=== PATIENT | male | born 1945 | race Caucasian/White ===

== ENCOUNTER → 2016-10-03 | Outpatient (CLI) | payer OTHER ==
[~2016-10-03] MED LIST: ALPRAZOLAM0.25 M2 PO; AMBIEN5 MG PO; ATORVASTATIN CA10 MG PO; BACTRIM,SEPT1 TABLET PO; BAZA ANTIFUNGAL57 GM TP; BUMETANIDE1 MG PO; CARVEDILOL3.125 MG PO; CEFEPIME HCL2 GM IM; CHLORHEXIDINE473 ML MM; CIPRO250 MG PO; COREG3.125 M1 PO; CORTIZONE-10 PL57 GM TP; DULCOLAX10 MG PR; DUONEB 2.5-0.5 M3 ML AEROSOL; FERROUS SULFAT325 MG PO; FLOMAX0.4 MG PO; GENTLELAX119 GM PO; GLUCAGEN1 MG IM; HEPARIN SO5000 UNITS SC; HYDROCORTISON28.4 GM TP; LANTUS 3 M100 UNITS1 SC; LAXATIVE SUPPOS10 MG PR; LEVEMIR100 UNIT/2 SC; LEVOFLOXACIN750 MG PO; LEVOTHYROXINE25 MCG PO; LORAZEPAM0.5 MG PO; LYRICA75 MG PO; MAGNESIUM OXID400 MG PO; MAGNESIUM400 M1 PO; METHADONE10 MG PO; MILK OF MAGN PO; MIRALAX255 GM PO; MUCUS RELIEF400 MG PO; MYCOSTATIN15 GM PO; NOVOLOG 10100 UNITS/ SC; NOVOLOG PE100 UNITS/ SC; PROTONIX40 MG PO; PROVENTIL,2.5 MG/0.5 AEROSOL; PULMICORT0.5 MG/21 IH; ROXICODONE5 MG PO; SANTYL30 GM TP; SENOKOT S,PE1 TABLET PO; THERA1 EAC1 PO; XANAX0.25 MG PO
== END ==
LOC: RAD 11:00
DX: C34.92 Malignant neoplasm of unspecified part of left bronchus or lung (principal); N20.0 Calculus of kidney; N28.1 Cyst of kidney, acquired; I70.0 Atherosclerosis of aorta; I34.8 Other nonrheumatic mitral valve disorders
CPT/HCPCS: 71250; 74150

== ENCOUNTER → 2016-11-02 | Outpatient (CLI) | payer OTHER ==
[~2016-11-02] VITALS: Ht 160 cm; Wt 114.5 kg
[~2016-11-02] MED LIST changes: +ACETAMINOPHEN325 M3 PO; +ASCORBIC ACID500 M1 PO; +IRON325 MG PO; +LEVO-T50 MCG PO; +LIPITOR10 MG PO; +MYCOSTATIN1 APPLICAT TP; +NACL IV; +OXAYDO5 MG PO; +POVIDONE IODINE TP; +PULMICORT AEROSOL; +TAMSULOSIN HCL0.4 MG PO; +[UNRECOGNIZED DRUG - OTHER] IV
[2016-11-02 13:26] LABS: POINT-OF-CARE METER ID UU13113694
[2016-11-02 13:30] LABS: HEMATOCRIT 28.7 % (38.0-50.0); MCH 24.9 PG (29.0-34.0); MCHC 29.3 G/DL (30.0-36.0); MCV 85.2 FL (86-99); MEAN PLAT.VOLUME 9.8 uM^3 (9.0-12.4); PLATELET COUNT 145 K/uL (156-360); RBC DIS.WIDTH-CV 17.4 % (11.8-14.6); RBC DIS.WIDTH-SD 54.3 % (39-53); RED BLOOD COUNT 3.37 M/uL (4.00-5.50); WHITE BLOOD COUNT 4.1 K/uL (4.1-10.2)
[2016-11-02 13:52] LABS: INTER. NORMALIZED RATIO 1.2; PROTHROMBIN TIME 12.7 (9.2-11.2); PTT 28.9 (25-32)
== END | disposition home or self-care (01) ==
LOC: AMB 12:50
PROVIDERS: Internal Medicine Pulmonary Disease
PROC: 0B9B8ZX Drainage of Left Lower Lobe Bronchus, Via Natural or Artificial Opening Endoscopic, Diagnostic (ICD-10-PCS; principal; 2016-11-02)
DX: R91.8 Other nonspecific abnormal finding of lung field (principal)
CPT/HCPCS: 71010; 82948; 85027; 85610; 85730; 87070; 87077; 87116; 87205; 87206; 88108; 94002; J2250

== ENCOUNTER → 2016-11-22 | Outpatient (CLI) | payer OTHER | LOC: RAD 11-21 11:00 | DX: J98.09 Other diseases of bronchus, not elsewhere classified (principal) | CPT/HCPCS: 71250; 94799 ==

== ENCOUNTER 2016-12-01 17:24 | Inpatient (IN) | payer OTHER ==
[~2016-12-01] VITALS: Ht 182.9 cm; Wt 116.8 kg
[2016-12-01 18:20] LABS: BASE EXCESS 10.1 mEq/L (-3 to +3); CARBOXY HGB 1.7 % (0-5); PCO2 44 mm Hg (35-45)
[2016-12-01 18:22] LABS: BICARBONATE 34.3 mEq/L (22-26); COMMENTS - BLOOD GASES C+; DEVICE VENT; FI02 35 %; MECHANICAL RATE 26 resp/min; MODE AC; PEEP 5 CM/H20; PO2 69 mm Hg (80-100); SITE RR; TIDAL VOLUME 600 ML; TOTAL RESP RATE 26 resp/min
[2016-12-01 18:29] LABS: EOSINOPHIL COUNT 0.1 K/uL (0-0.3); HEMATOCRIT 28.6 % (38.0-50.0); IMMATURE GRANULOCYTE (%) 0.4 % (0.0-0.7); INSTRUMENT ABS NEUTROPHIL CT 3.8 K/uL; LYMPHOCYTE COUNT 0.3 K/uL (1.0-2.8); MCH 26.5 PG (29.0-34.0); MCHC 30.4 G/DL (30.0-36.0); MCV 87.2 FL (86-99); MEAN PLAT.VOLUME 10.8 uM^3 (9.0-12.4); MONOCYTE (%) 8.2 % (3-12); MONOCYTE COUNT 0.4 K/uL (0-0.8); NEUTROPHIL (%) 83.6 % (45-76); NEUTROPHIL COUNT 3.8 K/uL (1.8-6.4); PLATELET COUNT 119 K/uL (156-360); RBC DIS.WIDTH-CV 16.3 % (11.8-14.6); RBC DIS.WIDTH-SD 52.5 % (39-53); RED BLOOD COUNT 3.28 M/uL (4.00-5.50); WHITE BLOOD COUNT 4.5 K/uL (4.1-10.2)
[2016-12-01 18:38] LABS: CHLORIDE 103 mEq/L (99-109); POTASSIUM 4.8 mEq/L (3.7-5.4); SODIUM 140 mEq/L (136-147)
[2016-12-01 18:40] LABS: GLUCOSE 61 mg/dL (70-99)
[2016-12-01 18:41] LABS: ANION GAP 7 MEQ/L (2-14)
[2016-12-01 18:42] LABS: TOTAL BILIRUBIN 0.6 mg/dL (0.0-1.0)
[2016-12-01 18:43] LABS: ALKALINE PHOSPHATASE 95 IU/L (3-129)
[2016-12-01 18:44] LABS: GFR ESTIMATE (CALCULATED) > 59 mL/min/
[2016-12-01 18:45] LABS: UREA NITROGEN (BUN) 25 mg/dL (9-23)
[2016-12-01 19:50] LABS: POINT-OF-CARE METER ID UU13113702
[2016-12-01 20:47] LABS: ADD MIUA? YES; BILIRUBIN NEGATIVE; BLOOD MODERATE; COLOR YELLOW ((YELLOW)); GLUCOSE (STRIP) NEGATIVE; KETONES NEGATIVE; LEUKOCYTES TRACE; NITRITE NEGATIVE; PROTEIN (STRIP) 30; SPECIFIC GRAVITY 1.016 (1.000-1.030); UROBILINOGEN 0.2 MG/DL (0.2-1.0)
[2016-12-01 21:14] LABS: BACTERIA NONE SEEN /HPF; EPITHELIAL CELLS RARE /HPF; MUCUS NONE SEEN /LPF; RED BLOOD CELLS NONE SEEN /HPF (0-5); UCUL ADDED? NO
[2016-12-01] MEDS ORDERED: CALCIUM CARBON648 MG PO (22:35)
[2016-12-01] MEDS ORDERED: ZOSYN 3.373.375 GM/5 IV (22:37)
[2016-12-01] MEDS ORDERED: TROPICAMIDE15 M1 BOTH EYES (22:39)
[2016-12-01] MEDS ORDERED: POVIDONE IODINE TP (23:01)
[2016-12-02] VITALS (9 sets, daily range): BP systolic 79–110; BP diastolic 41–55
[2016-12-02 00:18] LABS: POINT-OF-CARE METER ID UU13113702
[2016-12-02 02:06] LABS: POINT-OF-CARE METER ID UU14174217
[2016-12-02 02:23] LABS: METH RESISTANT S AUREUS PCR POSITIVE (NEGATIVE)
[2016-12-02 02:31] LABS: PROBE CHECK PASS
[2016-12-02 06:00] LABS: POINT-OF-CARE METER ID UU14162636
[2016-12-02 06:15] LABS: HEMATOCRIT 27.1 % (38.0-50.0); MCH 26.5 PG (29.0-34.0); MCHC 30.6 G/DL (30.0-36.0); MCV 86.6 FL (86-99); MEAN PLAT.VOLUME 10.9 uM^3 (9.0-12.4); PLATELET COUNT 107 K/uL (156-360); RBC DIS.WIDTH-CV 16.5 % (11.8-14.6); RBC DIS.WIDTH-SD 52.4 % (39-53); RED BLOOD COUNT 3.13 M/uL (4.00-5.50); WHITE BLOOD COUNT 3.5 K/uL (4.1-10.2)
[2016-12-02 06:36] LABS: ANION GAP 6 MEQ/L (2-14); CHLORIDE 104 MEQ/L (99-109); GFR ESTIMATE (CALCULATED) > 59 mL/min/; GLUCOSE 77 mg/dL (70-99); POTASSIUM 4.5 MEQ/L (3.7-5.4); SAMPLE HEMOLYSIS CHECK 0; SAMPLE ICTERIC CHECK 0; SAMPLE LIPEMIA CHECK 0; SODIUM 139 MEQ/L (136-147); UREA NITROGEN (BUN) 21 mg/dL (9-23)
[2016-12-02 09:34] LABS: POINT-OF-CARE METER ID UU14162636
[2016-12-02 13:54] LABS: POINT-OF-CARE METER ID UU14162636
[2016-12-02 18:28] LABS: POINT-OF-CARE METER ID UU14174217
[2016-12-02 21:10] LABS: POINT-OF-CARE METER ID UU14174217
[2016-12-03] VITALS (9 sets, daily range): BP systolic 77–92; BP diastolic 41–53
[2016-12-03 01:45] LABS: POINT-OF-CARE METER ID UU14174217
[2016-12-03 05:51] LABS: POINT-OF-CARE METER ID UU14174217
[2016-12-03 09:45] LABS: POINT-OF-CARE METER ID UU14174217
[2016-12-03 10:26] LABS: HEMATOCRIT 27.9 % (38.0-50.0); MCH 26.2 PG (29.0-34.0); MCHC 30.1 G/DL (30.0-36.0); MCV 86.9 FL (86-99); MEAN PLAT.VOLUME 11.6 uM^3 (9.0-12.4); PLATELET COUNT 108 K/uL (156-360); RBC DIS.WIDTH-CV 17.2 % (11.8-14.6); RBC DIS.WIDTH-SD 54.9 % (39-53); RED BLOOD COUNT 3.21 M/uL (4.00-5.50); WHITE BLOOD COUNT 3.7 K/uL (4.1-10.2)
[2016-12-03 10:39] LABS: ANION GAP 7 MEQ/L (2-14); CHLORIDE 102 MEQ/L (99-109); GFR ESTIMATE (CALCULATED) 49 mL/min/; MAGNESIUM 1.9 mg/dl (1.3-2.7); POTASSIUM 4.6 MEQ/L (3.7-5.4); SAMPLE HEMOLYSIS CHECK 0; SAMPLE ICTERIC CHECK 0; SAMPLE LIPEMIA CHECK 0; SODIUM 137 MEQ/L (136-147); UREA NITROGEN (BUN) 23 mg/dL (9-23)
[2016-12-03 10:50] LABS: GLUCOSE 226 mg/dL (70-99)
[2016-12-03 16:24] LABS: POINT-OF-CARE METER ID UU14174217
[2016-12-03 17:35] LABS: POINT-OF-CARE METER ID UU13113702
[2016-12-03 22:40] LABS: POINT-OF-CARE METER ID UU14174217
[2016-12-04] VITALS: BP 88/50
[2016-12-04 04:00] VITALS: BP 106/61
[2016-12-04 05:56] LABS: HEMATOCRIT 26.5 % (38.0-50.0); MCH 26.4 PG (29.0-34.0); MCHC 30.6 G/DL (30.0-36.0); MCV 86.3 FL (86-99); MEAN PLAT.VOLUME 11.4 uM^3 (9.0-12.4); PLATELET COUNT 106 K/uL (156-360); RBC DIS.WIDTH-CV 17.3 % (11.8-14.6); RBC DIS.WIDTH-SD 54.6 % (39-53); RED BLOOD COUNT 3.07 M/uL (4.00-5.50)
[2016-12-04 06:49] LABS: ANION GAP 7 MEQ/L (2-14); CHLORIDE 105 MEQ/L (99-109); GFR ESTIMATE (CALCULATED) 49 mL/min/; GLUCOSE 195 mg/dL (70-99); POTASSIUM 4.6 MEQ/L (3.7-5.4); SAMPLE HEMOLYSIS CHECK 0; SAMPLE ICTERIC CHECK 0; SAMPLE LIPEMIA CHECK 0; SODIUM 137 MEQ/L (136-147); UREA NITROGEN (BUN) 24 mg/dL (9-23)
[2016-12-04 08:00] VITALS: BP 99/50
[2016-12-04] MEDS ORDERED: ZOSYN 3.373.375 GM/5 IV (10:56)
[2016-12-04] MEDS ORDERED: ACIDOPHILUS LA1 EACH PO (10:59)
[2016-12-04 12:00] VITALS: BP 91/46
[2016-12-04 12:08] LABS: POINT-OF-CARE METER ID UU14174217
== END 2016-12-04 14:30 | disposition short-term general hospital (02) | DRG 194 ==
LOC: EME → EDBD 17:24 → EME 17:24 → 4WEST 23:21 → EDOF 23:21 → 4WEST 12-02 00:45
PROVIDERS: Emergency Medicine; Hospitalist; Internal Medicine
DX: J18.9 Pneumonia, unspecified organism (principal); Z99.11 Dependence on respirator [ventilator] status; J96.11 Chronic respiratory failure with hypoxia; Z93.0 Tracheostomy status; D69.6 Thrombocytopenia, unspecified; E11.22 Type 2 diabetes mellitus with diabetic chronic kidney disease; E11.649 Type 2 diabetes mellitus with hypoglycemia without coma; N18.3 Chronic kidney disease, stage 3 (moderate); I95.9 Hypotension, unspecified; J44.9 Chronic obstructive pulmonary disease, unspecified; B19.20 Unspecified viral hepatitis C without hepatic coma; E66.9 Obesity, unspecified; G89.4 Chronic pain syndrome; K74.60 Unspecified cirrhosis of liver; E03.9 Hypothyroidism, unspecified; G47.33 Obstructive sleep apnea (adult) (pediatric); E78.5 Hyperlipidemia, unspecified; F41.9 Anxiety disorder, unspecified; I89.0 Lymphedema, not elsewhere classified; I87.2 Venous insufficiency (chronic) (peripheral); Y95 Nosocomial condition; Z68.33 Body mass index [BMI] 33.0-33.9, adult; Z95.2 Presence of prosthetic heart valve; Z87.01 Personal history of pneumonia (recurrent)
CPT/HCPCS: 36600; 71010; 74177; 80048; 80053; 80202; 81003; 82803; 82948; 83605; 83735; 85025; 85027; 87040; 87070; 87077; 87081; 87086; 87186; 87205; 87641; 93005; 94002; 94003; 94640; 94640 76; 99202; 99281; 99285; J0456; J0692; J1650; J1815; J1956; J2405; J2543; J3370; J7030; J7042; J7050; J7060

== ENCOUNTER → 2016-12-26 | Outpatient (CLI) | payer OTHER ==
[~2016-12-26] MED LIST changes: +ACIDOPHILUS LA1 EACH PO; +CALCIUM CARBON648 MG PO; +TROPICAMIDE15 M1 BOTH EYES; +ZOSYN 3.373.375 GM/5 IV
== END ==
LOC: AMB 11:53
DX: K62.5 Hemorrhage of anus and rectum (principal); D50.9 Iron deficiency anemia, unspecified; J96.10 Chronic respiratory failure, unspecified whether with hypoxia or hypercapnia; Z93.0 Tracheostomy status; Z99.11 Dependence on respirator [ventilator] status; B19.20 Unspecified viral hepatitis C without hepatic coma; E03.9 Hypothyroidism, unspecified; F41.9 Anxiety disorder, unspecified; G89.29 Other chronic pain; E11.42 Type 2 diabetes mellitus with diabetic polyneuropathy; K21.9 Gastro-esophageal reflux disease without esophagitis; Z87.898 Personal history of other specified conditions; Z87.891 Personal history of nicotine dependence
CPT/HCPCS: 94002; 99212

== ENCOUNTER 2017-01-24 22:22 | Emergency (ER) | payer OTHER ==
[~2017-01-24] VITALS: Ht 172.7 cm; Wt 87.7 kg
[~2017-01-24 22:22] MED LIST changes: +NYATA15 GM TP; +ZINC SULFATE220 MG PO; +[UNRECOGNIZED DRUG - OTHER]
[2017-01-24 23:18] LABS: HEMATOCRIT 26.5 % (38.0-50.0); MCH 27.2 PG (29.0-34.0); MCHC 31.7 G/DL (30.0-36.0); MCV 85.8 FL (86-99); MEAN PLAT.VOLUME 9.7 uM^3 (9.0-12.4); PLATELET COUNT 116 K/uL (156-360); RBC DIS.WIDTH-CV 15.4 % (11.8-14.6); RED BLOOD COUNT 3.09 M/uL (4.00-5.50); WHITE BLOOD COUNT 5.7 K/uL (4.1-10.2)
[2017-01-24 23:30] LABS: CHLORIDE 99 mEq/L (99-109); POTASSIUM 5.1 mEq/L (3.7-5.4); SODIUM 135 mEq/L (136-147)
[2017-01-24 23:32] LABS: GLUCOSE 146 mg/dL (70-99)
[2017-01-24 23:33] LABS: ANION GAP 11 MEQ/L (2-14)
[2017-01-24 23:34] LABS: TOTAL BILIRUBIN 0.4 mg/dL (0.0-1.0)
[2017-01-24 23:35] LABS: ALKALINE PHOSPHATASE 83 IU/L (3-129)
[2017-01-24 23:36] LABS: GFR ESTIMATE (CALCULATED) 40 mL/min/
[2017-01-24 23:37] LABS: UREA NITROGEN (BUN) 47 mg/dL (9-23)
[2017-01-24 23:39] LABS: LIPASE 16 U/L (1.0-51.0); TROP-I INTERPRETATION NEGATIVE; TROPONIN-I 0.03 ng/mL (0.0-0.30)
[2017-01-25 02:54] LABS: CHLORIDE 101 mEq/L (99-109); POTASSIUM 5.3 mEq/L (3.7-5.4); SODIUM 136 mEq/L (136-147)
[2017-01-25 02:55] LABS: GLUCOSE 110 mg/dL (70-99)
[2017-01-25 02:57] LABS: ANION GAP 8 MEQ/L (2-14)
[2017-01-25 02:59] LABS: GFR ESTIMATE (CALCULATED) 40 mL/min/
[2017-01-25 03:00] LABS: UREA NITROGEN (BUN) 46 mg/dL (9-23)
[2017-01-25 05:11] VITALS: BP 81/50
[2017-01-26] MEDS ORDERED: DUONEB 2.5-0.5 M3 ML IPPB (17:52)
[2017-01-26] MEDS ORDERED: PULMICORT0.5 MG/21 IH (17:53)
[2017-01-26] MEDS ORDERED: NYATA15 GM TP (17:53)
[2017-01-26] MEDS ORDERED: LEVO-T50 MCG PO (17:54)
[2017-01-26] MEDS ORDERED: ACIDOPHILUS1 EAC3 PO (17:55)
[2017-01-26] MEDS ORDERED: TROPICAMIDE15 M1 BOTH EYES (17:55)
[2017-01-26] MEDS ORDERED: PANTOPRAZOLE SO40 MG PO (17:56)
[2017-01-26] MEDS ORDERED: MAGNESIUM400 M1 PO (17:56)
[2017-01-26] MEDS ORDERED: POLYETHYLENE GL17 GM PO (17:57)
[2017-01-26] MEDS ORDERED: THERA1 EAC1 PO (17:58)
[2017-01-26] MEDS ORDERED: LYRICA75 MG PO (17:58)
[2017-01-26] MEDS ORDERED: CORTIZONE-10 PL57 GM TP (17:59)
[2017-01-26] MEDS ORDERED: GLUCAGEN1 MG IM (17:59)
[2017-01-26] MEDS ORDERED: MILK OF MAGN PO (18:00)
[2017-01-26] MEDS ORDERED: SENEXON-S TABL1 EACH PO (18:01)
[2017-01-26] MEDS ORDERED: OXAYDO5 MG PO (18:03)
[2017-01-26] MEDS ORDERED: TAMSULOSIN HCL0.4 MG PO (18:05)
[2017-01-26] MEDS ORDERED: ACETAMINOPHEN325 M1 PO (18:06)
[2017-01-26] MEDS ORDERED: AMOXICILLIN500 MG PO (18:08)
[2017-01-26] MEDS ORDERED: CEPACOL SORE T1 EAC9 MM (18:10)
[2017-01-26] MEDS ORDERED: CALCIUM CARBON648 MG PO (18:11)
[2017-01-26] MEDS ORDERED: METHADONE5 MG PO (18:11)
[2017-01-26] MEDS ORDERED: METHADONE10 MG PO (18:12)
[2017-01-26] MEDS ORDERED: FERROUS SULFAT325 MG PO (18:13)
[2017-01-26] MEDS ORDERED: LEVEMIR100 UNIT/2 SC (18:13)
[2017-01-26] MEDS ORDERED: NOVOLOG 10100 UNITS/ SC ×2 (18:14→18:18)
[2017-01-26] MEDS ORDERED: ASCORBIC ACID500 M3 PO (18:19)
[2017-01-26] MEDS ORDERED: ZINC SULFATE220 M1 PO (18:20)
[2017-01-26] MEDS ORDERED: ATORVASTATIN CA10 MG PO (18:20)
== END 2017-01-25 05:22 ==
LOC: EME → EDBD 22:22 → EME 01-25 05:22
PROVIDERS: Emergency Medicine
DX: R13.10 Dysphagia, unspecified (principal); I13.0 Hypertensive heart and chronic kidney disease with heart failure and stage 1 through stage 4 chronic kidney disease, or unspecified chronic kidney disease; E11.22 Type 2 diabetes mellitus with diabetic chronic kidney disease; N18.9 Chronic kidney disease, unspecified; I50.9 Heart failure, unspecified; D64.9 Anemia, unspecified; I95.89 Other hypotension; Z87.19 Personal history of other diseases of the digestive system; Z99.11 Dependence on respirator [ventilator] status; Z93.0 Tracheostomy status; Z87.891 Personal history of nicotine dependence
CPT/HCPCS: 71010; 80048; 80053; 81003; 83605; 83690; 83880; 84484; 85027; 87040; 93005; 94002; 94003; 99281; 99285; C9113; J7030

== ENCOUNTER 2017-01-25 16:06 | Inpatient (IN) | payer OTHER ==
[~2017-01-25] VITALS: Ht 165.1 cm; Wt 98.1 kg
[2017-01-25 17:57] LABS: EOSINOPHIL (%) 1.8 % (0-5); EOSINOPHIL COUNT 0.1 K/uL (0-0.3); HEMATOCRIT 26.5 % (38.0-50.0); IMMATURE GRANULOCYTE (%) 0.4 % (0.0-0.7); INSTRUMENT ABS NEUTROPHIL CT 4.4 K/uL; LYMPHOCYTE COUNT 0.5 K/uL (1.0-2.8); MCH 27.6 PG (29.0-34.0); MCHC 31.3 G/DL (30.0-36.0); MEAN PLAT.VOLUME 10.8 uM^3 (9.0-12.4); MONOCYTE (%) 7.5 % (3-12); MONOCYTE COUNT 0.4 K/uL (0-0.8); NEUTROPHIL (%) 80.7 % (45-76); NEUTROPHIL COUNT 4.4 K/uL (1.8-6.4); PLATELET COUNT 118 K/uL (156-360); RBC DIS.WIDTH-CV 15.6 % (11.8-14.6); RBC DIS.WIDTH-SD 50.2 % (39-53); RED BLOOD COUNT 3.01 M/uL (4.00-5.50); WHITE BLOOD COUNT 5.5 K/uL (4.1-10.2)
[2017-01-25 18:13] LABS: CHLORIDE 101 mEq/L (99-109); POTASSIUM 5.5 mEq/L (3.7-5.4); SODIUM 136 mEq/L (136-147)
[2017-01-25 18:15] LABS: GLUCOSE 118 mg/dL (70-99)
[2017-01-25 18:16] LABS: ANION GAP 9 MEQ/L (2-14)
[2017-01-25 18:19] LABS: GFR ESTIMATE (CALCULATED) 35 mL/min/
[2017-01-25 18:20] LABS: UREA NITROGEN (BUN) 49 mg/dL (9-23)
[2017-01-25 18:49] LABS: TOTAL BILIRUBIN 0.4 mg/dL (0.0-1.0)
[2017-01-25 18:50] LABS: ALKALINE PHOSPHATASE 78 IU/L (3-129)
[2017-01-25 18:52] LABS: DIRECT BILIRUBIN 0.3 mg/dL (0.0-0.3)
[2017-01-25 18:59] LABS: TROP-I INTERPRETATION NEGATIVE; TROPONIN-I 0.04 ng/mL (0.0-0.30)
[2017-01-25 20:36] LABS: ADD MIUA? YES; BILIRUBIN NEGATIVE; BLOOD LARGE; COLOR YELLOW ((YELLOW)); GLUCOSE (STRIP) NEGATIVE; KETONES 5; LEUKOCYTES LARGE; NITRITE NEGATIVE; PROTEIN (STRIP) 30; SPECIFIC GRAVITY 1.012 (1.000-1.030); UROBILINOGEN 0.2 MG/DL (0.2-1.0)
[2017-01-25 21:18] LABS: AMORPHOUS URATES CRYSTALS 2+; BACTERIA RARE /HPF; CASTS NONE SEEN /LPF; CRYSTALS PRESENT; EPITHELIAL CELLS NONE SEEN /HPF; MUCUS NONE SEEN /LPF; UCUL ADDED? NO; WHITE BLOOD CELLS 40-50 /HPF (0-5)
[2017-01-25 22:08] VITALS: BP 92/42
[2017-01-25 22:14] VITALS: BP 87/49
[2017-01-25 23:00] VITALS: BP 91/41
[2017-01-25 23:52] LABS: METH RESISTANT S AUREUS PCR NEGATIVE (NEGATIVE)
[2017-01-25 23:56] LABS: PROBE CHECK PASS; SPECIMEN PROCESSING CONTROL PASS
[2017-01-26] VITALS (26 sets, daily range): BP systolic 70–120; BP diastolic 33–60
[2017-01-26 06:39] LABS: POINT-OF-CARE METER ID UU14162636
[2017-01-26 06:52] LABS: CHLORIDE 108 mEq/L (99-109); POTASSIUM 5.2 mEq/L (3.7-5.4); SODIUM 139 mEq/L (136-147)
[2017-01-26 06:54] LABS: GLUCOSE 163 mg/dL (70-99)
[2017-01-26 06:56] LABS: ANION GAP 10 MEQ/L (2-14)
[2017-01-26 06:58] LABS: GFR ESTIMATE (CALCULATED) 43 mL/min/
[2017-01-26 06:59] LABS: UREA NITROGEN (BUN) 40 mg/dL (9-23)
[2017-01-26 09:09] LABS: EOSINOPHIL (%) 1.5 % (0-5); EOSINOPHIL COUNT 0.1 K/uL (0-0.3); HEMATOCRIT 24.4 % (38.0-50.0); IMMATURE GRANULOCYTE (%) 0.4 % (0.0-0.7); INSTRUMENT ABS NEUTROPHIL CT 3.6 K/uL; LYMPHOCYTE COUNT 0.5 K/uL (1.0-2.8); MCH 27.6 PG (29.0-34.0); MCHC 32.4 G/DL (30.0-36.0); MCV 85.3 FL (86-99); MEAN PLAT.VOLUME 10.7 uM^3 (9.0-12.4); MONOCYTE (%) 8.5 % (3-12); MONOCYTE COUNT 0.4 K/uL (0-0.8); NEUTROPHIL (%) 78.3 % (45-76); NEUTROPHIL COUNT 3.6 K/uL (1.8-6.4); PLATELET COUNT 115 K/uL (156-360); RBC DIS.WIDTH-CV 15.6 % (11.8-14.6); RBC DIS.WIDTH-SD 49.2 % (39-53); RED BLOOD COUNT 2.86 M/uL (4.00-5.50); WHITE BLOOD COUNT 4.6 K/uL (4.1-10.2)
[2017-01-26 12:48] LABS: POINT-OF-CARE METER ID UU14162636
[2017-01-26] MEDS ORDERED: DUONEB 2.5-0.5 M3 ML IPPB (17:52)
[2017-01-26] MEDS ORDERED: PULMICORT0.5 MG/21 IH (17:53)
[2017-01-26] MEDS ORDERED: NYATA15 GM TP (17:53)
[2017-01-26] MEDS ORDERED: LEVO-T50 MCG PO (17:54)
[2017-01-26 17:55] LABS: POINT-OF-CARE METER ID UU14162636
[2017-01-26] MEDS ORDERED: TROPICAMIDE15 M1 BOTH EYES (17:55)
[2017-01-26] MEDS ORDERED: ACIDOPHILUS1 EAC3 PO (17:55)
[2017-01-26] MEDS ORDERED: PANTOPRAZOLE SO40 MG PO (17:56)
[2017-01-26] MEDS ORDERED: MAGNESIUM400 M1 PO (17:56)
[2017-01-26] MEDS ORDERED: POLYETHYLENE GL17 GM PO (17:57)
[2017-01-26] MEDS ORDERED: THERA1 EAC1 PO (17:58)
[2017-01-26] MEDS ORDERED: LYRICA75 MG PO (17:58)
[2017-01-26] MEDS ORDERED: GLUCAGEN1 MG IM (17:59)
[2017-01-26] MEDS ORDERED: CORTIZONE-10 PL57 GM TP (17:59)
[2017-01-26] MEDS ORDERED: MILK OF MAGN PO (18:00)
[2017-01-26] MEDS ORDERED: SENEXON-S TABL1 EACH PO (18:01)
[2017-01-26] MEDS ORDERED: OXAYDO5 MG PO (18:03)
[2017-01-26] MEDS ORDERED: TAMSULOSIN HCL0.4 MG PO (18:05)
[2017-01-26] MEDS ORDERED: ACETAMINOPHEN325 M1 PO (18:06)
[2017-01-26] MEDS ORDERED: AMOXICILLIN500 MG PO (18:08)
[2017-01-26] MEDS ORDERED: CEPACOL SORE T1 EAC9 MM (18:10)
[2017-01-26] MEDS ORDERED: CALCIUM CARBON648 MG PO (18:11)
[2017-01-26] MEDS ORDERED: METHADONE5 MG PO (18:11)
[2017-01-26] MEDS ORDERED: METHADONE10 MG PO (18:12)
[2017-01-26] MEDS ORDERED: FERROUS SULFAT325 MG PO (18:13)
[2017-01-26] MEDS ORDERED: LEVEMIR100 UNIT/2 SC (18:13)
[2017-01-26] MEDS ORDERED: NOVOLOG 10100 UNITS/ SC ×2 (18:14→18:18)
[2017-01-26] MEDS ORDERED: ASCORBIC ACID500 M3 PO (18:19)
[2017-01-26] MEDS ORDERED: ATORVASTATIN CA10 MG PO (18:20)
[2017-01-26] MEDS ORDERED: ZINC SULFATE220 M1 PO (18:20)
[2017-01-26 21:52] LABS: POINT-OF-CARE METER ID UU14162636
[2017-01-27] VITALS (24 sets, daily range): BP systolic 68–140; BP diastolic 35–64
[2017-01-27 08:26] LABS: EOSINOPHIL (%) 2.8 % (0-5); EOSINOPHIL COUNT 0.1 K/uL (0-0.3); HEMATOCRIT 24.9 % (38.0-50.0); IMMATURE GRANULOCYTE (%) 0.3 % (0.0-0.7); INSTRUMENT ABS NEUTROPHIL CT 2.8 K/uL; LYMPHOCYTE COUNT 0.6 K/uL (1.0-2.8); MCH 28.2 PG (29.0-34.0); MCHC 32.9 G/DL (30.0-36.0); MCV 85.6 FL (86-99); MEAN PLAT.VOLUME 10.6 uM^3 (9.0-12.4); MONOCYTE (%) 9.3 % (3-12); MONOCYTE COUNT 0.4 K/uL (0-0.8); NEUTROPHIL (%) 73.1 % (45-76); NEUTROPHIL COUNT 2.8 K/uL (1.8-6.4); PLATELET COUNT 114 K/uL (156-360); RBC DIS.WIDTH-CV 15.9 % (11.8-14.6); RBC DIS.WIDTH-SD 50.1 % (39-53); RED BLOOD COUNT 2.91 M/uL (4.00-5.50); WHITE BLOOD COUNT 3.9 K/uL (4.1-10.2)
[2017-01-27 08:52] LABS: ANION GAP 7 MEQ/L (2-14); CHLORIDE 104 MEQ/L (99-109); GFR ESTIMATE (CALCULATED) 49 mL/min/; GLUCOSE 150 mg/dL (70-99); SAMPLE HEMOLYSIS CHECK 0; SAMPLE ICTERIC CHECK 0; SAMPLE LIPEMIA CHECK 0; SODIUM 135 MEQ/L (136-147); UREA NITROGEN (BUN) 31 mg/dL (9-23)
[2017-01-27 08:55] LABS: POTASSIUM 4.1 MEQ/L (3.7-5.4)
[2017-01-27 12:36] LABS: POINT-OF-CARE METER ID UU14162636
[2017-01-27 17:44] LABS: POINT-OF-CARE METER ID UU14162636
[2017-01-28] VITALS (13 sets, daily range): BP systolic 69–142; BP diastolic 47–69
[2017-01-28 06:08] LABS: EOSINOPHIL (%) 5.8 % (0-5); EOSINOPHIL COUNT 0.2 K/uL (0-0.3); HEMATOCRIT 24.3 % (38.0-50.0); IMMATURE GRANULOCYTE (%) 0.3 % (0.0-0.7); INSTRUMENT ABS NEUTROPHIL CT 2.4 K/uL; LYMPHOCYTE COUNT 0.5 K/uL (1.0-2.8); MCH 27.9 PG (29.0-34.0); MCHC 32.5 G/DL (30.0-36.0); MCV 85.9 FL (86-99); MEAN PLAT.VOLUME 11.2 uM^3 (9.0-12.4); MONOCYTE COUNT 0.3 K/uL (0-0.8); NEUTROPHIL (%) 70.7 % (45-76); NEUTROPHIL COUNT 2.4 K/uL (1.8-6.4); PLATELET COUNT 121 K/uL (156-360); RBC DIS.WIDTH-CV 15.5 % (11.8-14.6); RBC DIS.WIDTH-SD 49.2 % (39-53); RED BLOOD COUNT 2.83 M/uL (4.00-5.50); WHITE BLOOD COUNT 3.5 K/uL (4.1-10.2)
[2017-01-28 06:19] LABS: INTER. NORMALIZED RATIO 2.3; PROTHROMBIN TIME 24.4 (9.2-11.2)
[2017-01-28 06:45] LABS: ANION GAP 5 MEQ/L (2-14); CHLORIDE 107 MEQ/L (99-109); GFR ESTIMATE (CALCULATED) 49 mL/min/; POTASSIUM 4.2 MEQ/L (3.7-5.4); SAMPLE HEMOLYSIS CHECK 0; SAMPLE ICTERIC CHECK 0; SAMPLE LIPEMIA CHECK 0; SODIUM 136 MEQ/L (136-147); UREA NITROGEN (BUN) 25 mg/dL (9-23)
[2017-01-28 06:46] LABS: GLUCOSE 112 mg/dL (70-99)
[2017-01-28 17:16] LABS: POINT-OF-CARE METER ID UU14174217
[2017-01-28 19:07] LABS: MCH 28.1 PG (29.0-34.0); MCHC 32.7 G/DL (30.0-36.0); MCV 86.1 FL (86-99); MEAN PLAT.VOLUME 11.7 uM^3 (9.0-12.4); PLATELET COUNT 139 K/uL (156-360); RBC DIS.WIDTH-CV 15.6 % (11.8-14.6); RBC DIS.WIDTH-SD 48.5 % (39-53); RED BLOOD COUNT 3.02 M/uL (4.00-5.50); WHITE BLOOD COUNT 3.6 K/uL (4.1-10.2)
[2017-01-29 05:14] LABS: POINT-OF-CARE METER ID UU14162636
[2017-01-29 07:55] LABS: ANION GAP 9 MEQ/L (2-14); CHLORIDE 107 MEQ/L (99-109); GFR ESTIMATE (CALCULATED) 37 mL/min/; GLUCOSE 158 mg/dL (70-99); POTASSIUM 4.2 MEQ/L (3.7-5.4); SAMPLE HEMOLYSIS CHECK 0; SAMPLE ICTERIC CHECK 0; SAMPLE LIPEMIA CHECK 0; SODIUM 136 MEQ/L (136-147); UREA NITROGEN (BUN) 26 mg/dL (9-23)
[2017-01-29 08:18] LABS: EOSINOPHIL (%) 3.9 % (0-5); EOSINOPHIL COUNT 0.1 K/uL (0-0.3); HEMATOCRIT 24.5 % (38.0-50.0); IMMATURE GRANULOCYTE (%) 0.4 % (0.0-0.7); INSTRUMENT ABS NEUTROPHIL CT 2.1 K/uL; LYMPHOCYTE COUNT 0.3 K/uL (1.0-2.8); MCHC 31.8 G/DL (30.0-36.0); MCV 87.8 FL (86-99); MONOCYTE (%) 7.5 % (3-12); MONOCYTE COUNT 0.2 K/uL (0-0.8); NEUTROPHIL COUNT 2.1 K/uL (1.8-6.4); RBC DIS.WIDTH-CV 15.5 % (11.8-14.6); RBC DIS.WIDTH-SD 49.6 % (39-53); RED BLOOD COUNT 2.79 M/uL (4.00-5.50); WHITE BLOOD COUNT 2.8 K/uL (4.1-10.2)
[2017-01-29 09:28] LABS: MEAN PLAT.VOLUME 11.3 uM^3 (9.0-12.4); PLAT.SUFFICIENCY DECREASED
[2017-01-29 09:31] LABS: PLATELET COUNT 96 K/uL (156-360)
[2017-01-29 12:24] LABS: POINT-OF-CARE METER ID UU14162636
[2017-01-29 17:48] LABS: POINT-OF-CARE METER ID UU14162636
[2017-01-29 19:30] VITALS: BP 83/47
[2017-01-29 22:00] VITALS: BP 91/53
[2017-01-29 22:36] LABS: POINT-OF-CARE METER ID UU14162636
[2017-01-30] VITALS (22 sets, daily range): BP systolic 71–92; BP diastolic 41–58
[2017-01-30 07:12] LABS: EOSINOPHIL COUNT 0.1 K/uL (0-0.3); HEMATOCRIT 26.1 % (38.0-50.0); IMMATURE GRANULOCYTE (%) 0.3 % (0.0-0.7); INSTRUMENT ABS NEUTROPHIL CT 2.5 K/uL; LYMPHOCYTE COUNT 0.4 K/uL (1.0-2.8); MCHC 31.4 G/DL (30.0-36.0); MCV 89.1 FL (86-99); MEAN PLAT.VOLUME 11.5 uM^3 (9.0-12.4); MONOCYTE (%) 7.7 % (3-12); MONOCYTE COUNT 0.3 K/uL (0-0.8); NEUTROPHIL (%) 76.9 % (45-76); NEUTROPHIL COUNT 2.5 K/uL (1.8-6.4); PLATELET COUNT 90 K/uL (156-360); RBC DIS.WIDTH-CV 15.5 % (11.8-14.6); RBC DIS.WIDTH-SD 50.7 % (39-53); RED BLOOD COUNT 2.93 M/uL (4.00-5.50); WHITE BLOOD COUNT 3.3 K/uL (4.1-10.2)
[2017-01-30 07:33] LABS: ANION GAP 9 MEQ/L (2-14); CHLORIDE 106 MEQ/L (99-109); GFR ESTIMATE (CALCULATED) 33 mL/min/; GLUCOSE 145 mg/dL (70-99); POTASSIUM 4.2 MEQ/L (3.7-5.4); SAMPLE HEMOLYSIS CHECK 0; SAMPLE ICTERIC CHECK 0; SAMPLE LIPEMIA CHECK 0; SODIUM 136 MEQ/L (136-147); UREA NITROGEN (BUN) 27 mg/dL (9-23)
[2017-01-30 10:03] LABS: INTER. NORMALIZED RATIO 1.2
[2017-01-30 11:46] LABS: BASE EXCESS -2.1 mEq/L (-3 to +3); CARBOXY HGB 2.2 % (0-5); METHEMOGLOBIN 1.7 % (0-1.5); PO2 58 mm Hg (80-100); pH 7.41 (7.35-7.45)
[2017-01-30 11:47] LABS: BICARBONATE 22.2 mEq/L (22-26); COMMENTS - BLOOD GASES A+C+; DEVICE 980 PB; FI02 21 %; MECHANICAL RATE 26 resp/min; MODE AC; PCO2 35 mm Hg (35-45); PEEP 5 CM/H20; SITE RR; TIDAL VOLUME 600 ML; TOTAL RESP RATE 26 resp/min
[2017-01-30 12:15] LABS: POINT-OF-CARE METER ID UU13113731
[2017-01-30 12:33] LABS: PROTHROMBIN TIME 12.4 (9.2-11.2)
[2017-01-30 18:12] LABS: POINT-OF-CARE METER ID UU13113731
[2017-01-30 21:44] LABS: POINT-OF-CARE METER ID UU13113731
[2017-01-31] VITALS (12 sets, daily range): BP systolic 73–98; BP diastolic 40–61
[2017-01-31 08:00] LABS: POINT-OF-CARE METER ID UU13113803
[2017-01-31 08:44] LABS: HEMATOCRIT 30.2 % (38.0-50.0); MCH 28.1 PG (29.0-34.0); MCHC 31.5 G/DL (30.0-36.0); MCV 89.3 FL (86-99); MEAN PLAT.VOLUME 11.7 uM^3 (9.0-12.4); PLATELET COUNT 91 K/uL (156-360); RBC DIS.WIDTH-CV 15.5 % (11.8-14.6); RED BLOOD COUNT 3.38 M/uL (4.00-5.50); WHITE BLOOD COUNT 3.9 K/uL (4.1-10.2)
[2017-01-31 09:00] LABS: CHLORIDE 108 mEq/L (99-109); POTASSIUM 3.9 mEq/L (3.7-5.4); SODIUM 138 mEq/L (136-147)
[2017-01-31 09:02] LABS: GLUCOSE 149 mg/dL (70-99)
[2017-01-31 09:03] LABS: ANION GAP 12 MEQ/L (2-14)
[2017-01-31 09:06] LABS: GFR ESTIMATE (CALCULATED) 32 mL/min/; UREA NITROGEN (BUN) 31 mg/dL (9-23)
[2017-01-31 09:49] LABS: EOSINOPHIL (%) 3.1 % (0-5); EOSINOPHIL COUNT 0.1 K/uL (0-0.3); IMMATURE GRANULOCYTE (%) 0.3 % (0.0-0.7); INSTRUMENT ABS NEUTROPHIL CT 3.2 K/uL; LYMPHOCYTE COUNT 0.3 K/uL (1.0-2.8); MONOCYTE (%) 5.4 % (3-12); MONOCYTE COUNT 0.2 K/uL (0-0.8); NEUTROPHIL COUNT 3.2 K/uL (1.8-6.4)
[2017-01-31 12:32] LABS: POINT-OF-CARE METER ID UU13113803
[2017-01-31 16:38] LABS: POINT-OF-CARE METER ID UU13113803
[2017-01-31 22:14] LABS: POINT-OF-CARE METER ID UU13113803
[2017-02-01] VITALS (8 sets, daily range): BP systolic 76–88; BP diastolic 45–52
[2017-02-01 05:39] LABS: EOSINOPHIL (%) 2.6 % (0-5); EOSINOPHIL COUNT 0.1 K/uL (0-0.3); HEMATOCRIT 25.7 % (38.0-50.0); INSTRUMENT ABS NEUTROPHIL CT 2.4 K/uL; LYMPHOCYTE COUNT 0.3 K/uL (1.0-2.8); MCH 27.8 PG (29.0-34.0); MCHC 31.5 G/DL (30.0-36.0); MCV 88.3 FL (86-99); MEAN PLAT.VOLUME 11.6 uM^3 (9.0-12.4); MONOCYTE (%) 6.9 % (3-12); MONOCYTE COUNT 0.2 K/uL (0-0.8); NEUTROPHIL COUNT 2.4 K/uL (1.8-6.4); PLATELET COUNT 86 K/uL (156-360); RBC DIS.WIDTH-CV 15.4 % (11.8-14.6); RBC DIS.WIDTH-SD 49.1 % (39-53); RED BLOOD COUNT 2.91 M/uL (4.00-5.50)
[2017-02-01 05:53] LABS: CHLORIDE 108 mEq/L (99-109); POTASSIUM 4.2 mEq/L (3.7-5.4); SODIUM 137 mEq/L (136-147)
[2017-02-01 05:57] LABS: ANION GAP 12 MEQ/L (2-14)
[2017-02-01 05:58] LABS: GLUCOSE 110 mg/dL (70-99); TOTAL BILIRUBIN 0.6 mg/dL (0.0-1.0)
[2017-02-01 05:59] LABS: ALKALINE PHOSPHATASE 74 IU/L (3-129); GFR ESTIMATE (CALCULATED) 30 mL/min/
[2017-02-01 06:00] LABS: UREA NITROGEN (BUN) 37 mg/dL (9-23)
[2017-02-01 16:57] LABS: POINT-OF-CARE METER ID UU13113731
[2017-02-01 22:09] LABS: POINT-OF-CARE METER ID UU13113731
[2017-02-01 22:23] LABS: ADD MIUA? YES; BILIRUBIN NEGATIVE; BLOOD LARGE; COLOR YELLOW ((YELLOW)); GLUCOSE (STRIP) NEGATIVE; KETONES NEGATIVE; LEUKOCYTES NEGATIVE; NITRITE NEGATIVE; PROTEIN (STRIP) NEGATIVE; SPECIFIC GRAVITY 1.012 (1.000-1.030); UROBILINOGEN 0.2 MG/DL (0.2-1.0)
[2017-02-01 22:34] LABS: BACTERIA NONE SEEN /HPF; EPITHELIAL CELLS RARE /HPF; MUCUS TRACE /LPF; RED BLOOD CELLS 40-50 /HPF (0-5); WHITE BLOOD CELLS 0-5 /HPF (0-5)
[2017-02-01 23:09] LABS: UR CREATININE CONCENTRATION 104.1 MG/DL
[2017-02-02] VITALS: BP 81/44
[2017-02-02 04:00] VITALS: BP 77/44
[2017-02-02 06:45] LABS: EOSINOPHIL (%) 3.2 % (0-5); EOSINOPHIL COUNT 0.1 K/uL (0-0.3); HEMATOCRIT 24.7 % (38.0-50.0); IMMATURE GRANULOCYTE (%) 0.3 % (0.0-0.7); INSTRUMENT ABS NEUTROPHIL CT 2.4 K/uL; LYMPHOCYTE COUNT 0.3 K/uL (1.0-2.8); MCH 27.9 PG (29.0-34.0); MCHC 31.6 G/DL (30.0-36.0); MCV 88.2 FL (86-99); MEAN PLAT.VOLUME 12.6 uM^3 (9.0-12.4); MONOCYTE (%) 8.4 % (3-12); MONOCYTE COUNT 0.3 K/uL (0-0.8); NEUTROPHIL (%) 76.8 % (45-76); NEUTROPHIL COUNT 2.4 K/uL (1.8-6.4); PLATELET COUNT 87 K/uL (156-360); RBC DIS.WIDTH-CV 15.5 % (11.8-14.6); RBC DIS.WIDTH-SD 50.1 % (39-53); WHITE BLOOD COUNT 3.1 K/uL (4.1-10.2)
[2017-02-02 08:39] LABS: ANION GAP 9 MEQ/L (2-14); CHLORIDE 104 MEQ/L (99-109); GFR ESTIMATE (CALCULATED) 25 mL/min/; GLUCOSE 112 mg/dL (70-99); POTASSIUM 4.1 MEQ/L (3.7-5.4); SAMPLE HEMOLYSIS CHECK 0; SAMPLE ICTERIC CHECK 0; SAMPLE LIPEMIA CHECK 0; SODIUM 135 MEQ/L (136-147); UREA NITROGEN (BUN) 39 mg/dL (9-23)
[2017-02-02 12:00] VITALS: BP 76/47
[2017-02-02 12:50] LABS: POINT-OF-CARE METER ID UU13113731
[2017-02-02 18:06] LABS: POINT-OF-CARE METER ID UU14162636
[2017-02-02 20:00] VITALS: BP 80/51
[2017-02-02 21:48] LABS: POINT-OF-CARE METER ID UU14162636
[2017-02-03] VITALS (11 sets, daily range): BP systolic 71–89; BP diastolic 47–56
[2017-02-03 07:37] LABS: EOSINOPHIL (%) 3.1 % (0-5); EOSINOPHIL COUNT 0.1 K/uL (0-0.3); HEMATOCRIT 24.9 % (38.0-50.0); IMMATURE GRANULOCYTE (%) 0.6 % (0.0-0.7); INSTRUMENT ABS NEUTROPHIL CT 2.5 K/uL; LYMPHOCYTE COUNT 0.3 K/uL (1.0-2.8); MCH 28.5 PG (29.0-34.0); MCHC 32.1 G/DL (30.0-36.0); MCV 88.6 FL (86-99); MEAN PLAT.VOLUME 11.9 uM^3 (9.0-12.4); MONOCYTE (%) 8.6 % (3-12); MONOCYTE COUNT 0.3 K/uL (0-0.8); NEUTROPHIL (%) 77.2 % (45-76); NEUTROPHIL COUNT 2.5 K/uL (1.8-6.4); PLATELET COUNT 89 K/uL (156-360); RBC DIS.WIDTH-CV 15.2 % (11.8-14.6); RED BLOOD COUNT 2.81 M/uL (4.00-5.50); WHITE BLOOD COUNT 3.3 K/uL (4.1-10.2)
[2017-02-03 08:11] LABS: ANION GAP 9 MEQ/L (2-14); CHLORIDE 102 MEQ/L (99-109); GFR ESTIMATE (CALCULATED) 24 mL/min/; GLUCOSE 144 mg/dL (70-99); POTASSIUM 4.1 MEQ/L (3.7-5.4); SAMPLE HEMOLYSIS CHECK 0; SAMPLE ICTERIC CHECK 0; SAMPLE LIPEMIA CHECK 0; SODIUM 131 MEQ/L (136-147); UREA NITROGEN (BUN) 44 mg/dL (9-23)
[2017-02-03 12:39] LABS: POINT-OF-CARE METER ID UU13113803
[2017-02-03 17:20] LABS: POINT-OF-CARE METER ID UU13113731
[2017-02-03 22:18] LABS: POINT-OF-CARE METER ID UU14174217
[2017-02-04] VITALS (7 sets, daily range): BP systolic 75–88; BP diastolic 42–51
[2017-02-04 06:03] LABS: EOSINOPHIL (%) 4.7 % (0-5); EOSINOPHIL COUNT 0.1 K/uL (0-0.3); IMMATURE GRANULOCYTE (%) 0.4 % (0.0-0.7); INSTRUMENT ABS NEUTROPHIL CT 1.7 K/uL; LYMPHOCYTE COUNT 0.3 K/uL (1.0-2.8); MCH 29.3 PG (29.0-34.0); MCHC 32.9 G/DL (30.0-36.0); MCV 88.9 FL (86-99); MEAN PLAT.VOLUME 12.4 uM^3 (9.0-12.4); MONOCYTE (%) 9.5 % (3-12); MONOCYTE COUNT 0.2 K/uL (0-0.8); NEUTROPHIL (%) 72.1 % (45-76); NEUTROPHIL COUNT 1.7 K/uL (1.8-6.4); PLATELET COUNT 87 K/uL (156-360); RBC DIS.WIDTH-CV 15.3 % (11.8-14.6)
[2017-02-04 06:04] LABS: WHITE BLOOD COUNT 2.3 K/uL (4.1-10.2)
[2017-02-04 06:16] LABS: ANION GAP 12 MEQ/L (2-14); CHLORIDE 103 MEQ/L (99-109); POTASSIUM 4.3 MEQ/L (3.7-5.4); SAMPLE HEMOLYSIS CHECK 0; SAMPLE ICTERIC CHECK 0; SAMPLE LIPEMIA CHECK 0; SODIUM 133 MEQ/L (136-147)
[2017-02-04 06:25] LABS: GFR ESTIMATE (CALCULATED) 21 mL/min/; UREA NITROGEN (BUN) 47 mg/dL (9-23)
[2017-02-04 06:30] LABS: GLUCOSE 96 mg/dL (70-99)
[2017-02-04 22:10] LABS: ADD MIUA? YES; BILIRUBIN NEGATIVE; BLOOD LARGE; COLOR YELLOW ((YELLOW)); GLUCOSE (STRIP) NEGATIVE; KETONES NEGATIVE; LEUKOCYTES NEGATIVE; NITRITE NEGATIVE; PROTEIN (STRIP) 30; SPECIFIC GRAVITY 1.006 (1.000-1.030); UROBILINOGEN 0.2 MG/DL (0.2-1.0)
[2017-02-04 22:21] LABS: BACTERIA RARE /HPF; EPITHELIAL CELLS RARE /HPF; GRANULAR CASTS 0-5 /LPF; MUCUS NONE SEEN /LPF; WHITE BLOOD CELLS 0-5 /HPF (0-5)
[2017-02-04 23:13] LABS: POINT-OF-CARE METER ID UU13113803
[2017-02-05] VITALS: BP 99/68
[2017-02-05 04:00] VITALS: BP 84/50
[2017-02-05 07:59] LABS: ANION GAP 7 MEQ/L (2-14); CHLORIDE 107 MEQ/L (99-109); GFR ESTIMATE (CALCULATED) 24 mL/min/; MAGNESIUM 2.3 mg/dl (1.3-2.7); POTASSIUM 4.1 MEQ/L (3.7-5.4); SAMPLE HEMOLYSIS CHECK 0; SAMPLE ICTERIC CHECK 0; SAMPLE LIPEMIA CHECK 0; SODIUM 134 MEQ/L (136-147); UREA NITROGEN (BUN) 43 mg/dL (9-23)
[2017-02-05 08:00] VITALS: BP 82/55
[2017-02-05 08:03] LABS: GLUCOSE 156 mg/dL (70-99)
[2017-02-05 08:34] LABS: HEMATOCRIT 25.4 % (38.0-50.0); MCH 29.3 PG (29.0-34.0); MCHC 32.7 G/DL (30.0-36.0); MCV 89.8 FL (86-99); MEAN PLAT.VOLUME 12.5 uM^3 (9.0-12.4); PLATELET COUNT 89 K/uL (156-360); RBC DIS.WIDTH-CV 15.2 % (11.8-14.6); RBC DIS.WIDTH-SD 50.4 % (39-53); RED BLOOD COUNT 2.83 M/uL (4.00-5.50); WHITE BLOOD COUNT 2.1 K/uL (4.1-10.2)
[2017-02-05 12:00] VITALS: BP 79/45
[2017-02-05 12:17] LABS: POINT-OF-CARE METER ID UU13113803
[2017-02-05 16:00] VITALS: BP 89/54
[2017-02-05 17:00] LABS: POINT-OF-CARE METER ID UU13113803
[2017-02-05 22:00] VITALS: BP 106/61
[2017-02-05 22:19] LABS: POINT-OF-CARE METER ID UU13113803; POINT-OF-CARE USER ID RADDRS44
[2017-02-06] VITALS: BP 88/50
[2017-02-06 04:00] VITALS: BP 89/50
[2017-02-06 05:24] LABS: EOSINOPHIL (%) 4.2 % (0-5); EOSINOPHIL COUNT 0.1 K/uL (0-0.3); HEMATOCRIT 24.4 % (38.0-50.0); IMMATURE GRANULOCYTE (%) 0.5 % (0.0-0.7); INSTRUMENT ABS NEUTROPHIL CT 1.6 K/uL; LYMPHOCYTE COUNT 0.3 K/uL (1.0-2.8); MCH 28.4 PG (29.0-34.0); MCHC 32.4 G/DL (30.0-36.0); MCV 87.8 FL (86-99); MEAN PLAT.VOLUME 11.7 uM^3 (9.0-12.4); MONOCYTE (%) 7.4 % (3-12); MONOCYTE COUNT 0.2 K/uL (0-0.8); NEUTROPHIL (%) 73.5 % (45-76); NEUTROPHIL COUNT 1.6 K/uL (1.8-6.4); PLATELET COUNT 91 K/uL (156-360); RBC DIS.WIDTH-CV 15.2 % (11.8-14.6); RBC DIS.WIDTH-SD 49.2 % (39-53); RED BLOOD COUNT 2.78 M/uL (4.00-5.50); WHITE BLOOD COUNT 2.2 K/uL (4.1-10.2)
[2017-02-06 05:43] LABS: ANION GAP 10 MEQ/L (2-14); CHLORIDE 107 MEQ/L (99-109); GFR ESTIMATE (CALCULATED) 26 mL/min/; GLUCOSE 148 mg/dL (70-99); POTASSIUM 3.9 MEQ/L (3.7-5.4); SAMPLE HEMOLYSIS CHECK 0; SAMPLE ICTERIC CHECK 0; SAMPLE LIPEMIA CHECK 0; SODIUM 137 MEQ/L (136-147); UREA NITROGEN (BUN) 41 mg/dL (9-23)
[2017-02-06 08:00] VITALS: BP 97/53
[2017-02-06 12:00] VITALS: BP 98/58
[2017-02-06 12:37] LABS: POINT-OF-CARE METER ID UU14174217
[2017-02-06 16:00] VITALS: BP 98/53
[2017-02-06 17:29] LABS: POINT-OF-CARE METER ID UU14174217
[2017-02-06 20:00] VITALS: BP 91/51
[2017-02-06 21:20] LABS: POINT-OF-CARE USER ID RADDRS44
[2017-02-07] VITALS (10 sets, daily range): BP systolic 0–118; BP diastolic 0–64
[2017-02-07 05:32] LABS: EOSINOPHIL (%) 4.8 % (0-5); EOSINOPHIL COUNT 0.1 K/uL (0-0.3); HEMATOCRIT 25.3 % (38.0-50.0); IMMATURE GRANULOCYTE (%) 0.5 % (0.0-0.7); INSTRUMENT ABS NEUTROPHIL CT 1.5 K/uL; LYMPHOCYTE COUNT 0.3 K/uL (1.0-2.8); MCH 28.4 PG (29.0-34.0); MCHC 31.6 G/DL (30.0-36.0); MCV 89.7 FL (86-99); MEAN PLAT.VOLUME 11.7 uM^3 (9.0-12.4); MONOCYTE (%) 6.2 % (3-12); MONOCYTE COUNT 0.1 K/uL (0-0.8); NEUTROPHIL (%) 71.2 % (45-76); NEUTROPHIL COUNT 1.5 K/uL (1.8-6.4); PLATELET COUNT 91 K/uL (156-360); RED BLOOD COUNT 2.82 M/uL (4.00-5.50); WHITE BLOOD COUNT 2.1 K/uL (4.1-10.2)
[2017-02-07 06:46] LABS: ANION GAP 8 MEQ/L (2-14); CHLORIDE 109 MEQ/L (99-109); GFR ESTIMATE (CALCULATED) 29 mL/min/; GLUCOSE 133 mg/dL (70-99); POTASSIUM 4.2 MEQ/L (3.7-5.4); SAMPLE HEMOLYSIS CHECK 0; SAMPLE ICTERIC CHECK 0; SAMPLE LIPEMIA CHECK 0; SODIUM 138 MEQ/L (136-147); UREA NITROGEN (BUN) 42 mg/dL (9-23)
[2017-02-07 12:17] LABS: POINT-OF-CARE METER ID UU14174217
[2017-02-07 23:08] LABS: POINT-OF-CARE USER ID RADDRS44
[2017-02-08] VITALS (9 sets, daily range): BP systolic 80–118; BP diastolic 48–65
[2017-02-08 05:58] LABS: EOSINOPHIL (%) 5.8 % (0-5); EOSINOPHIL COUNT 0.1 K/uL (0-0.3); HEMATOCRIT 25.2 % (38.0-50.0); INSTRUMENT ABS NEUTROPHIL CT 1.5 K/uL; LYMPHOCYTE COUNT 0.3 K/uL (1.0-2.8); MCH 28.3 PG (29.0-34.0); MCHC 31.3 G/DL (30.0-36.0); MCV 90.3 FL (86-99); MEAN PLAT.VOLUME 11.6 uM^3 (9.0-12.4); MONOCYTE (%) 6.8 % (3-12); MONOCYTE COUNT 0.1 K/uL (0-0.8); NEUTROPHIL (%) 72.3 % (45-76); NEUTROPHIL COUNT 1.5 K/uL (1.8-6.4); PLATELET COUNT 89 K/uL (156-360); RBC DIS.WIDTH-CV 15.2 % (11.8-14.6); RBC DIS.WIDTH-SD 51.1 % (39-53); RED BLOOD COUNT 2.79 M/uL (4.00-5.50); WHITE BLOOD COUNT 2.1 K/uL (4.1-10.2)
[2017-02-08 06:54] LABS: ANION GAP 10 MEQ/L (2-14); CHLORIDE 108 MEQ/L (99-109); GFR ESTIMATE (CALCULATED) 33 mL/min/; GLUCOSE 102 mg/dL (70-99); POTASSIUM 4.1 MEQ/L (3.7-5.4); SAMPLE HEMOLYSIS CHECK 0; SAMPLE ICTERIC CHECK 0; SAMPLE LIPEMIA CHECK 0; SODIUM 138 MEQ/L (136-147); UREA NITROGEN (BUN) 43 mg/dL (9-23)
[2017-02-08 13:22] LABS: POINT-OF-CARE METER ID UU13113803; POINT-OF-CARE USER ID 606021424
[2017-02-08 17:37] LABS: POINT-OF-CARE METER ID UU13113803
[2017-02-08 22:52] LABS: POINT-OF-CARE METER ID UU14174217
[2017-02-09] VITALS (8 sets, daily range): BP systolic 83–104; BP diastolic 46–60
[2017-02-09 06:30] LABS: EOSINOPHIL COUNT 0.1 K/uL (0-0.3); HEMATOCRIT 25.5 % (38.0-50.0); IMMATURE GRANULOCYTE (%) 0.9 % (0.0-0.7); INSTRUMENT ABS NEUTROPHIL CT 1.6 K/uL; LYMPHOCYTE COUNT 0.3 K/uL (1.0-2.8); MCH 28.1 PG (29.0-34.0); MCV 90.7 FL (86-99); MEAN PLAT.VOLUME 11.6 uM^3 (9.0-12.4); MONOCYTE (%) 7.2 % (3-12); MONOCYTE COUNT 0.2 K/uL (0-0.8); NEUTROPHIL (%) 71.9 % (45-76); NEUTROPHIL COUNT 1.6 K/uL (1.8-6.4); PLATELET COUNT 89 K/uL (156-360); RBC DIS.WIDTH-SD 50.1 % (39-53); RED BLOOD COUNT 2.81 M/uL (4.00-5.50); WHITE BLOOD COUNT 2.2 K/uL (4.1-10.2)
[2017-02-09 07:14] LABS: ANION GAP 11 MEQ/L (2-14); CHLORIDE 112 MEQ/L (99-109); GFR ESTIMATE (CALCULATED) 32 mL/min/; POTASSIUM 4.3 MEQ/L (3.7-5.4); SAMPLE HEMOLYSIS CHECK 0; SAMPLE ICTERIC CHECK 0; SAMPLE LIPEMIA CHECK 0; SODIUM 142 MEQ/L (136-147); UREA NITROGEN (BUN) 38 mg/dL (9-23)
[2017-02-09 07:16] LABS: GLUCOSE 163 mg/dL (70-99)
[2017-02-09 11:51] LABS: POINT-OF-CARE METER ID UU13113803
[2017-02-09] MEDS ORDERED: MIDODRINE HCL5 MG PO (13:01)
[2017-02-09 15:48] LABS: BASE EXCESS -1.8 mEq/L (-3 to +3); BICARBONATE 23.1 mEq/L (22-26); CARBOXY HGB 1.3 % (0-5); COMMENTS - BLOOD GASES A+C+; DEVICE VENTIALTOR; METHEMOGLOBIN 1.3 % (0-1.5); PCO2 39 mm Hg (35-45); PO2 152 mm Hg (80-100); PRES. SUPPORT 10 CM/H2O; SITE RR; TOTAL RESP RATE 16 resp/min; pH 7.38 (7.35-7.45)
[2017-02-09 15:49] LABS: CONTINUOUS POS AIRWAY PRESSURE 5 cm H2O
[2017-02-09 17:08] LABS: POINT-OF-CARE METER ID UU13113803
[2017-02-10] VITALS (9 sets, daily range): BP systolic 83–117; BP diastolic 50–68
[2017-02-10 00:59] LABS: BASE EXCESS -1.8 mEq/L (-3 to +3); CARBOXY HGB 1.7 % (0-5); METHEMOGLOBIN 1.1 % (0-1.5); PCO2 38 mm Hg (35-45); pH 7.39 (7.35-7.45)
[2017-02-10 01:00] LABS: COMMENTS - BLOOD GASES A+C+; DEVICE 980; FI02 35 %; MODE SPONT; PEEP 5 CM/H20; PO2 96 mm Hg (80-100); PRES. SUPPORT 10 CM/H2O; SITE RR; TOTAL RESP RATE 18 resp/min
[2017-02-10 05:54] LABS: EOSINOPHIL (%) 5.2 % (0-5); EOSINOPHIL COUNT 0.1 K/uL (0-0.3); HEMATOCRIT 26.3 % (38.0-50.0); IMMATURE GRANULOCYTE (%) 0.4 % (0.0-0.7); INSTRUMENT ABS NEUTROPHIL CT 1.8 K/uL; LYMPHOCYTE COUNT 0.3 K/uL (1.0-2.8); MCH 28.8 PG (29.0-34.0); MCHC 30.8 G/DL (30.0-36.0); MCV 93.6 FL (86-99); MEAN PLAT.VOLUME 11.6 uM^3 (9.0-12.4); MONOCYTE (%) 7.3 % (3-12); MONOCYTE COUNT 0.2 K/uL (0-0.8); NEUTROPHIL COUNT 1.8 K/uL (1.8-6.4); PLATELET COUNT 80 K/uL (156-360); RED BLOOD COUNT 2.81 M/uL (4.00-5.50); WHITE BLOOD COUNT 2.5 K/uL (4.1-10.2)
[2017-02-10 06:31] LABS: ANION GAP 9 MEQ/L (2-14); CHLORIDE 113 MEQ/L (99-109); GFR ESTIMATE (CALCULATED) 40 mL/min/; POTASSIUM 4.5 MEQ/L (3.7-5.4); SAMPLE HEMOLYSIS CHECK 0; SAMPLE ICTERIC CHECK 0; SAMPLE LIPEMIA CHECK 0; SODIUM 142 MEQ/L (136-147); UREA NITROGEN (BUN) 34 mg/dL (9-23)
[2017-02-10 06:32] LABS: GLUCOSE 108 mg/dL (70-99)
[2017-02-10 11:49] LABS: POINT-OF-CARE METER ID UU13113803
[2017-02-10 17:22] LABS: POINT-OF-CARE METER ID UU13113803
[2017-02-10 21:29] LABS: POINT-OF-CARE METER ID UU13113803
[2017-02-11] VITALS (8 sets, daily range): BP systolic 78–100; BP diastolic 50–59
[2017-02-11 07:48] LABS: ANION GAP 9 MEQ/L (2-14); CHLORIDE 113 MEQ/L (99-109); POTASSIUM 4.6 MEQ/L (3.7-5.4); SAMPLE HEMOLYSIS CHECK 1; SAMPLE ICTERIC CHECK 0; SAMPLE LIPEMIA CHECK 0; SODIUM 142 MEQ/L (136-147)
[2017-02-11 07:53] LABS: GFR ESTIMATE (CALCULATED) 49 mL/min/; GLUCOSE 93 mg/dL (70-99); UREA NITROGEN (BUN) 31 mg/dL (9-23)
[2017-02-11 12:35] LABS: POINT-OF-CARE METER ID UU13113731
== END 2017-02-11 16:00 | DRG 871 ==
LOC: EME → EDBD 16:06 → EME 16:06 → EDOF 20:57 → 4WEST 20:57
PROVIDERS: Emergency Medicine; Internal Medicine; Internal Medicine Critical Care Medicine; Internal Medicine Gastroenterology; Internal Medicine Nephrology; Psychiatry & Neurology Neurology; Specialist; Student in an Organized Health Care Education/Training Program
PROC: 30233N1 Transfusion of Nonautologous Red Blood Cells into Peripheral Vein, Percutaneous Approach (ICD-10-PCS; principal; 2017-01-28)
PROC: 0DJ08ZZ Inspection of Upper Intestinal Tract, Via Natural or Artificial Opening Endoscopic (ICD-10-PCS; principal; 2017-01-28)
DX: A41.9 Sepsis, unspecified organism (principal); R57.8 Other shock; N17.0 Acute kidney failure with tubular necrosis; K76.7 Hepatorenal syndrome; Z99.11 Dependence on respirator [ventilator] status; D61.818 Other pancytopenia; J96.10 Chronic respiratory failure, unspecified whether with hypoxia or hypercapnia; N18.3 Chronic kidney disease, stage 3 (moderate); L03.115 Cellulitis of right lower limb; K56.7 Ileus, unspecified; K76.6 Portal hypertension; K31.89 Other diseases of stomach and duodenum; K74.60 Unspecified cirrhosis of liver; T18.128A Food in esophagus causing other injury, initial encounter; X58.XXXA Exposure to other specified factors, initial encounter; K92.1 Melena; I85.10 Secondary esophageal varices without bleeding; N13.2 Hydronephrosis with renal and ureteral calculous obstruction; I12.9 Hypertensive chronic kidney disease with stage 1 through stage 4 chronic kidney disease, or unspecified chronic kidney disease; E11.22 Type 2 diabetes mellitus with diabetic chronic kidney disease; L03.116 Cellulitis of left lower limb; Z86.19 Personal history of other infectious and parasitic diseases; I35.0 Nonrheumatic aortic (valve) stenosis; Z93.0 Tracheostomy status; J44.9 Chronic obstructive pulmonary disease, unspecified; K21.9 Gastro-esophageal reflux disease without esophagitis; E03.9 Hypothyroidism, unspecified; G89.29 Other chronic pain; G47.33 Obstructive sleep apnea (adult) (pediatric); E78.5 Hyperlipidemia, unspecified; N40.0 Benign prostatic hyperplasia without lower urinary tract symptoms; F41.9 Anxiety disorder, unspecified; Z87.828 Personal history of other (healed) physical injury and trauma; Z87.891 Personal history of nicotine dependence; I83.209 Varicose veins of unspecified lower extremity with both ulcer of unspecified site and inflammation; L97.911 Non-pressure chronic ulcer of unspecified part of right lower leg limited to breakdown of skin; L97.921 Non-pressure chronic ulcer of unspecified part of left lower leg limited to breakdown of skin; E87.2 Acidosis; E66.9 Obesity, unspecified; Z68.32 Body mass index [BMI] 32.0-32.9, adult; J98.11 Atelectasis; E11.42 Type 2 diabetes mellitus with diabetic polyneuropathy; L89.159 Pressure ulcer of sacral region, unspecified stage; Z86.018 Personal history of other benign neoplasm; D50.0 Iron deficiency anemia secondary to blood loss (chronic); E86.9 Volume depletion, unspecified; E83.39 Other disorders of phosphorus metabolism; Z74.01 Bed confinement status; R18.8 Other ascites
CPT/HCPCS: 36600; 36620; 71010; 74000; 74176; 74177; 76770; 80048; 80048 91; 80053; 80069; 80076; 81003; 82436; 82570; 82803; 82948; 83605; 83690; 83735; 83880; 84100; 84156; 84300; 84443; 84484; 85025; 85027; 85610; 85730; 86900; 86901; 86920; 87040; 87070; 87077; 87081; 87086; 87205; 87641; 89190; 92610 GN; 93005; 93971; 94002; 94003; 94640; 94640 76; 94760; 99202; 99281; 99285; C9113; J0692; J1650; J1815; J2405; J2543; J2710; J3370; J3430; J7030; J7042; J7050; J7120; P9016; P9017; P9047

== ENCOUNTER 2017-02-14 10:42 | Emergency (ER) | payer OTHER ==
[~2017-02-14] VITALS: Ht 177.8 cm; Wt 98.3 kg
[~2017-02-14 10:42] MED LIST changes: +ACETAMINOPHEN325 M1 PO; +ACIDOPHILUS1 EAC3 PO; +AMOXICILLIN500 MG PO; +ASCORBIC ACID500 M3 PO; +CEPACOL SORE T1 EAC9 MM; +DUONEB 2.5-0.5 M3 ML IPPB; +METHADONE5 MG PO; +MIDODRINE HCL5 MG PO; +PANTOPRAZOLE SO40 MG PO; +POLYETHYLENE GL17 GM PO; +SENEXON-S TABL1 EACH PO; +ZINC SULFATE220 M1 PO
[2017-02-14 13:00] VITALS: BP 87/62
== END 2017-02-14 13:00 ==
LOC: EME → EDBD 10:42 → EME 13:00
DX: R41.82 Altered mental status, unspecified (principal); Z53.21 Procedure and treatment not carried out due to patient leaving prior to being seen by health care provider
CPT/HCPCS: 94002; 99281; 99283

== ENCOUNTER 2017-03-07 02:34 | Emergency (ER) | payer OTHER ==
[~2017-03-07] VITALS: Ht 165.1 cm; Wt 86.0 kg
[2017-03-07 04:01] LABS: MCH 28.2 PG (29.0-34.0); MCV 93.9 FL (86-99); MEAN PLAT.VOLUME 11.3 uM^3 (9.0-12.4); PLATELET COUNT 109 K/uL (156-360); RBC DIS.WIDTH-CV 14.6 % (11.8-14.6); RBC DIS.WIDTH-SD 50.2 % (39-53); RED BLOOD COUNT 2.77 M/uL (4.00-5.50); WHITE BLOOD COUNT 2.8 K/uL (4.1-10.2)
[2017-03-07 04:05] LABS: CHLORIDE 102 mEq/L (99-109); POTASSIUM 5.1 mEq/L (3.7-5.4); SODIUM 138 mEq/L (136-147)
[2017-03-07 04:07] LABS: GLUCOSE 94 mg/dL (70-99)
[2017-03-07 04:09] LABS: ANION GAP 8 MEQ/L (2-14); TOTAL BILIRUBIN 0.5 mg/dL (0.0-1.0)
[2017-03-07 04:11] LABS: ALKALINE PHOSPHATASE 98 IU/L (3-129); GFR ESTIMATE (CALCULATED) 49 mL/min/
[2017-03-07 04:12] LABS: TROP-I INTERPRETATION NEGATIVE; TROPONIN-I 0.02 ng/mL (0.0-0.30); UREA NITROGEN (BUN) 32 mg/dL (9-23)
[2017-03-07 04:14] LABS: LIPASE 24 U/L (1.0-51.0)
[2017-03-07 06:06] VITALS: BP 88/55
[2017-03-07 06:17] LABS: INTER. NORMALIZED RATIO 1.2; PTT 30.8 (25-32)
[2017-03-07 06:25] VITALS: BP 82/48
[2017-03-07 07:18] VITALS: BP 81/58
[2017-03-07 08:15] VITALS: BP 85/45
[2017-03-07 08:21] VITALS: BP 81/50
[2017-03-07 08:39] VITALS: BP 81/50
== END 2017-03-07 09:36 ==
LOC: EME → EDBD 02:34 → EME 09:36
PROVIDERS: Emergency Medicine
DX: R19.5 Other fecal abnormalities (principal); D64.9 Anemia, unspecified; I95.89 Other hypotension; I12.9 Hypertensive chronic kidney disease with stage 1 through stage 4 chronic kidney disease, or unspecified chronic kidney disease; N18.9 Chronic kidney disease, unspecified; Z99.11 Dependence on respirator [ventilator] status; E11.9 Type 2 diabetes mellitus without complications; J44.9 Chronic obstructive pulmonary disease, unspecified; K21.9 Gastro-esophageal reflux disease without esophagitis; Z87.891 Personal history of nicotine dependence; Z79.4 Long term (current) use of insulin
CPT/HCPCS: 80053; 83605; 83690; 84484; 85027; 85610; 85730; 86900; 86901; 86920; 87040; 93005; 94002; 99281; 99284; J7030; P9016; S0028

== ENCOUNTER 2017-04-14 17:10 | Inpatient (IN) | payer OTHER ==
[2017-04-14] VITALS (11 sets, daily range): BP systolic 68–119; BP diastolic 41–85
[~2017-04-14] VITALS: Ht 165.1 cm; Wt 84.2 kg
[~2017-04-14 17:10] MED LIST changes: +CALCIUM 500 +1 EACH PO; -DUONEB 2.5-0.5 M3 ML IPPB; +GLUCAGON1 MG IM; -SENEXON-S TABL1 EACH PO; +SENNA8.6 MG PO
[2017-04-14 17:59] LABS: HEMATOCRIT 15.8 % (38.0-50.0); MCV 93.5 FL (86-99); MEAN PLAT.VOLUME 11.6 uM^3 (9.0-12.4); PLATELET COUNT 99 K/uL (156-360); RBC DIS.WIDTH-SD 50.8 % (39-53); RED BLOOD COUNT 1.69 M/uL (4.00-5.50)
[2017-04-14] MEDS ORDERED: MIRTAZAPINE7.5 MG PO (18:01)
[2017-04-14] MEDS ORDERED: MIDODRINE HCL5 MG PO (18:02)
[2017-04-14] MEDS ORDERED: MIDODRINE HCL10 MG PO (18:02)
[2017-04-14] MEDS ORDERED: ENULOSE10 GM/15 M PO (18:03)
[2017-04-14 18:04] LABS: CHLORIDE 105 mEq/L (99-109); POTASSIUM 5.7 mEq/L (3.7-5.4); SODIUM 142 mEq/L (136-147)
[2017-04-14 18:05] LABS: INTER. NORMALIZED RATIO 1.4; PROTHROMBIN TIME 15.4 SEC (10.2-12.9)
[2017-04-14 18:06] LABS: GLUCOSE 113 mg/dL (70-99)
[2017-04-14 18:07] LABS: ANION GAP 8 MEQ/L (2-14)
[2017-04-14 18:09] LABS: GFR ESTIMATE (CALCULATED) 33 mL/min/
[2017-04-14 18:10] LABS: UREA NITROGEN (BUN) 76 mg/dL (9-23)
[2017-04-14] MEDS ORDERED: ACIDOPHILUS1 EAC3 PO (18:13)
[2017-04-14 18:27] LABS: TROP-I INTERPRETATION NEGATIVE; TROPONIN-I 0.03 ng/mL (0.0-0.30)
[2017-04-14 22:48] LABS: METH RESISTANT S AUREUS PCR POSITIVE (NEGATIVE); PROBE CHECK PASS
[2017-04-15] VITALS (36 sets, daily range): BP systolic 62–116; BP diastolic 35–76
[2017-04-15 00:43] LABS: HEMATOCRIT 19.2 % (38.0-50.0); MCH 29.5 PG (29.0-34.0); MCHC 32.3 G/DL (30.0-36.0); MCV 91.4 FL (86-99); MEAN PLAT.VOLUME 12.1 uM^3 (9.0-12.4); PLATELET COUNT 94 K/uL (156-360); RBC DIS.WIDTH-CV 15.9 % (11.8-14.6); RBC DIS.WIDTH-SD 52.6 % (39-53); WHITE BLOOD COUNT 7.7 K/uL (4.1-10.2)
[2017-04-15 06:51] LABS: EOSINOPHIL (%) 2.2 % (0-5); EOSINOPHIL COUNT 0.1 K/uL (0-0.3); HEMATOCRIT 19.1 % (38.0-50.0); IMMATURE GRANULOCYTE (%) 0.5 % (0.0-0.7); INSTRUMENT ABS NEUTROPHIL CT 3.2 K/uL; LYMPHOCYTE COUNT 0.5 K/uL (1.0-2.8); MCH 29.3 PG (29.0-34.0); MCHC 31.9 G/DL (30.0-36.0); MCV 91.8 FL (86-99); MONOCYTE COUNT 0.3 K/uL (0-0.8); NEUTROPHIL (%) 77.5 % (45-76); NEUTROPHIL COUNT 3.2 K/uL (1.8-6.4); PLATELET COUNT 80 K/uL (156-360); RBC DIS.WIDTH-CV 15.9 % (11.8-14.6); RBC DIS.WIDTH-SD 52.4 % (39-53); RED BLOOD COUNT 2.08 M/uL (4.00-5.50); WHITE BLOOD COUNT 4.1 K/uL (4.1-10.2)
[2017-04-15 07:06] LABS: ANION GAP 6 MEQ/L (2-14); CHLORIDE 113 MEQ/L (99-109); GFR ESTIMATE (CALCULATED) 37 mL/min/; GLUCOSE 138 mg/dL (70-99); POTASSIUM 5.8 MEQ/L (3.7-5.4); SAMPLE HEMOLYSIS CHECK 0; SAMPLE ICTERIC CHECK 0; SAMPLE LIPEMIA CHECK 0; SODIUM 146 MEQ/L (136-147); UREA NITROGEN (BUN) 72 mg/dL (9-23)
[2017-04-15 13:21] LABS: HEMATOCRIT 28.4 % (38.0-50.0); MCV 92.8 FL (86-99)
[2017-04-15 18:01] LABS: MCV 91.8 FL (86-99)
[2017-04-15 18:24] LABS: FIBRINOGEN 359 mg/dL (150-450); INTER. NORMALIZED RATIO 1.4; PROTHROMBIN TIME 15.1 SEC (10.2-12.9)
[2017-04-15 18:26] LABS: PTT 32.9 SEC (25-37)
[2017-04-16] VITALS (18 sets, daily range): BP systolic 74–122; BP diastolic 51–74
[2017-04-16 01:01] LABS: HEMATOCRIT 27.3 % (38.0-50.0); MCV 91.6 FL (86-99)
[2017-04-16 05:44] LABS: HEMATOCRIT 27.1 % (38.0-50.0); MCV 93.1 FL (86-99)
[2017-04-16 06:28] LABS: ALKALINE PHOSPHATASE 120 IU/L (3-129); ANION GAP 7 MEQ/L (2-14); CHLORIDE 113 MEQ/L (99-109); GFR ESTIMATE (CALCULATED) 40 mL/min/; GLUCOSE 184 mg/dL (70-99); POTASSIUM 5.2 MEQ/L (3.7-5.4); SAMPLE HEMOLYSIS CHECK 0; SAMPLE ICTERIC CHECK 0; SAMPLE LIPEMIA CHECK 0; SODIUM 145 MEQ/L (136-147); TOTAL BILIRUBIN 0.5 MG/DL (0.0-1.0); UREA NITROGEN (BUN) 57 mg/dL (9-23)
[2017-04-16 09:17] LABS: HEMATOCRIT 26.1 % (38.0-50.0); MCV 93.5 FL (86-99)
[2017-04-16 09:26] LABS: INTER. NORMALIZED RATIO 1.4; PROTHROMBIN TIME 15.4 SEC (10.2-12.9)
[2017-04-16 16:09] LABS: HEMATOCRIT 29.4 % (38.0-50.0); MCV 95.8 FL (86-99)
[2017-04-17] VITALS (14 sets, daily range): BP systolic 73–119; BP diastolic 46–73
[2017-04-17 00:51] LABS: HEMATOCRIT 26.4 % (38.0-50.0); MCV 93.6 FL (86-99)
[2017-04-17 05:37] LABS: EOSINOPHIL (%) 4.8 % (0-5); EOSINOPHIL COUNT 0.1 K/uL (0-0.3); HEMATOCRIT 26.9 % (38.0-50.0); IMMATURE GRANULOCYTE (%) 0.7 % (0.0-0.7); INSTRUMENT ABS NEUTROPHIL CT 2.1 K/uL; LYMPHOCYTE COUNT 0.4 K/uL (1.0-2.8); MCH 29.6 PG (29.0-34.0); MCHC 31.2 G/DL (30.0-36.0); MCV 94.7 FL (86-99); MEAN PLAT.VOLUME 11.6 uM^3 (9.0-12.4); MONOCYTE COUNT 0.3 K/uL (0-0.8); NEUTROPHIL (%) 72.8 % (45-76); NEUTROPHIL COUNT 2.1 K/uL (1.8-6.4); PLATELET COUNT 75 K/uL (156-360); RBC DIS.WIDTH-CV 15.6 % (11.8-14.6); RBC DIS.WIDTH-SD 53.9 % (39-53); WHITE BLOOD COUNT 2.9 K/uL (4.1-10.2)
[2017-04-17 06:03] LABS: RED BLOOD COUNT 2.84 M/uL (4.00-5.50)
[2017-04-17 06:09] LABS: ANION GAP 7 MEQ/L (2-14); CHLORIDE 113 MEQ/L (99-109); GFR ESTIMATE (CALCULATED) 53 mL/min/; GLUCOSE 146 mg/dL (70-99); POTASSIUM 4.2 MEQ/L (3.7-5.4); SAMPLE HEMOLYSIS CHECK 0; SAMPLE ICTERIC CHECK 0; SAMPLE LIPEMIA CHECK 0; SODIUM 145 MEQ/L (136-147); UREA NITROGEN (BUN) 39 mg/dL (9-23)
[2017-04-18] VITALS: BP 81/49
[2017-04-18 04:00] VITALS: BP 90/64
[2017-04-18 08:00] VITALS: BP 86/51
[2017-04-18 09:23] LABS: EOSINOPHIL (%) 4.3 % (0-5); EOSINOPHIL COUNT 0.1 K/uL (0-0.3); HEMATOCRIT 27.4 % (38.0-50.0); IMMATURE GRANULOCYTE (%) 0.4 % (0.0-0.7); INSTRUMENT ABS NEUTROPHIL CT 2.1 K/uL; LYMPHOCYTE COUNT 0.3 K/uL (1.0-2.8); MCH 29.5 PG (29.0-34.0); MCV 95.1 FL (86-99); MONOCYTE COUNT 0.2 K/uL (0-0.8); NEUTROPHIL (%) 74.6 % (45-76); NEUTROPHIL COUNT 2.1 K/uL (1.8-6.4); PLATELET COUNT 74 K/uL (156-360); RBC DIS.WIDTH-CV 15.3 % (11.8-14.6); RBC DIS.WIDTH-SD 53.6 % (39-53); RED BLOOD COUNT 2.88 M/uL (4.00-5.50); WHITE BLOOD COUNT 2.8 K/uL (4.1-10.2)
[2017-04-18 10:00] VITALS: BP 91/59
[2017-04-18 10:03] LABS: ANION GAP 6 MEQ/L (2-14); CHLORIDE 111 MEQ/L (99-109); GFR ESTIMATE (CALCULATED) 53 mL/min/; GLUCOSE 135 mg/dL (70-99); POTASSIUM 4.2 MEQ/L (3.7-5.4); SAMPLE HEMOLYSIS CHECK 0; SAMPLE ICTERIC CHECK 0; SAMPLE LIPEMIA CHECK 0; SODIUM 142 MEQ/L (136-147); UREA NITROGEN (BUN) 28 mg/dL (9-23)
[2017-04-18 12:00] VITALS: BP 85/53
[2017-04-18 13:01] LABS: POINT-OF-CARE METER ID UU14208751; POINT-OF-CARE USER ID AGYTJR
[2017-04-18 14:00] VITALS: BP 105/68
== END 2017-04-18 15:20 | DRG 378 ==
LOC: EME 17:10 → EDOF 20:18 → 4WEST 20:18 → ENRESERV 20:25 → 4WEST 21:34
PROVIDERS: Emergency Medicine; Internal Medicine Critical Care Medicine
PROC: 30233N1 Transfusion of Nonautologous Red Blood Cells into Peripheral Vein, Percutaneous Approach (ICD-10-PCS; principal; 2017-04-15)
PROC: 0DJ08ZZ Inspection of Upper Intestinal Tract, Via Natural or Artificial Opening Endoscopic (ICD-10-PCS; principal; 2017-04-15)
PROC: 0DJD8ZZ Inspection of Lower Intestinal Tract, Via Natural or Artificial Opening Endoscopic (ICD-10-PCS; 2017-04-17)
DX: K92.1 Melena (principal); Z99.11 Dependence on respirator [ventilator] status; D61.818 Other pancytopenia; J90 Pleural effusion, not elsewhere classified; I95.9 Hypotension, unspecified; J96.11 Chronic respiratory failure with hypoxia; Z93.0 Tracheostomy status; D68.9 Coagulation defect, unspecified; I12.9 Hypertensive chronic kidney disease with stage 1 through stage 4 chronic kidney disease, or unspecified chronic kidney disease; E11.22 Type 2 diabetes mellitus with diabetic chronic kidney disease; N18.3 Chronic kidney disease, stage 3 (moderate); B19.20 Unspecified viral hepatitis C without hepatic coma; D62 Acute posthemorrhagic anemia; K72.90 Hepatic failure, unspecified without coma; I35.0 Nonrheumatic aortic (valve) stenosis; I85.00 Esophageal varices without bleeding; J44.1 Chronic obstructive pulmonary disease with (acute) exacerbation; K21.9 Gastro-esophageal reflux disease without esophagitis; K31.89 Other diseases of stomach and duodenum; K57.30 Diverticulosis of large intestine without perforation or abscess without bleeding; K64.8 Other hemorrhoids; K76.6 Portal hypertension; Q27.33 Arteriovenous malformation of digestive system vessel; Z79.4 Long term (current) use of insulin; Z87.891 Personal history of nicotine dependence; R45.1 Restlessness and agitation; I87.8 Other specified disorders of veins; E66.9 Obesity, unspecified; Z68.31 Body mass index [BMI] 31.0-31.9, adult; R01.1 Cardiac murmur, unspecified; K70.30 Alcoholic cirrhosis of liver without ascites; F11.23 Opioid dependence with withdrawal
CPT/HCPCS: 71010; 80048; 80053; 82948; 84484; 85014; 85018; 85025; 85027; 85384; 85610; 85730; 86900; 86901; 86920; 87070; 87077; 87081; 87186; 87205; 87641; 93005; 94002; 94003; 94640; 94640 76; 94760; 99202; 99281; 99285; J0330; J0696; J2250; J2354; J3010; J7030; J7050; P9016; S0028

== ENCOUNTER 2017-07-29 09:25 | Inpatient (IN) | payer OTHER ==
[2017-07-29] VITALS (19 sets, daily range): BP systolic 76–132; BP diastolic 46–98
[~2017-07-29] VITALS: Ht 172.7 cm; Wt 106.5 kg
[~2017-07-29 09:25] MED LIST changes: +ENULOSE10 GM/15 M PO; +MIDODRINE HCL10 MG PO; +MIRTAZAPINE15 MG PO
[2017-07-29 10:34] LABS: BASE EXCESS 7.7 mEq/L (-3 to +3); pH 7.46 (7.35-7.45)
[2017-07-29 10:35] LABS: BICARBONATE 32.7 mEq/L (22-26); PCO2 46 mm Hg (35-45); PO2 118 mm Hg (80-100); SITE RR
[2017-07-29 10:36] LABS: COMMENTS - BLOOD GASES A+C+; DEVICE VENT; FI02 35 %; MECHANICAL RATE 18 resp/min; MODE AC/VC; PEEP 5 CM/H20; TIDAL VOLUME 500 ML; TOTAL RESP RATE 18 resp/min
[2017-07-29 10:38] LABS: INTER. NORMALIZED RATIO 1.3
[2017-07-29 10:41] LABS: PTT 24.4 SEC (25-37)
[2017-07-29 10:43] LABS: EOSINOPHIL COUNT 0.1 K/uL (0-0.3); HEMATOCRIT 18.2 % (38.0-50.0); IMMATURE GRANULOCYTE (%) 0.4 % (0.0-0.7); LYMPHOCYTE COUNT 0.2 K/uL (1.0-2.8); MCH 29.3 PG (29.0-34.0); MCHC 31.9 G/DL (30.0-36.0); MCV 91.9 FL (86-99); MONOCYTE (%) 9.6 % (3-12); MONOCYTE COUNT 0.2 K/uL (0-0.8); RBC DIS.WIDTH-CV 14.3 % (11.8-14.6); RBC DIS.WIDTH-SD 47.4 % (39-53); WHITE BLOOD COUNT 2.5 K/uL (4.1-10.2)
[2017-07-29 10:44] LABS: CHLORIDE 106 mEq/L (99-109); POTASSIUM 5.8 mEq/L (3.7-5.4); SODIUM 140 mEq/L (136-147)
[2017-07-29 10:46] LABS: GLUCOSE 175 mg/dL (70-99)
[2017-07-29 10:47] LABS: ANION GAP 7 MEQ/L (2-14)
[2017-07-29 10:48] LABS: TOTAL BILIRUBIN 0.6 mg/dL (0.0-1.0)
[2017-07-29 10:50] LABS: ALKALINE PHOSPHATASE 134 IU/L (3-129); GFR ESTIMATE (CALCULATED) 35 mL/min/
[2017-07-29 10:51] LABS: UREA NITROGEN (BUN) 69 mg/dL (9-23)
[2017-07-29 10:53] LABS: RED BLOOD COUNT 1.98 M/uL (4.00-5.50); TROP-I INTERPRETATION NEGATIVE; TROPONIN-I 0.05 ng/mL (0.0-0.30)
[2017-07-29 11:37] LABS: IMM.PLATELET FRACTION 5.5 (1-7); MEAN PLAT.VOLUME 12.3 uM^3 (9.0-12.4); PLAT.SUFFICIENCY DECREASED
[2017-07-29 11:39] LABS: ADD MIUA? YES; BILIRUBIN NEGATIVE; BLOOD MODERATE; COLOR YELLOW ((YELLOW)); GLUCOSE (STRIP) NEGATIVE; KETONES 5; LEUKOCYTES MODERATE; NITRITE NEGATIVE; PROTEIN (STRIP) NEGATIVE; SPECIFIC GRAVITY 1.012 (1.000-1.030); UROBILINOGEN 0.2 MG/DL (0.2-1.0)
[2017-07-29 11:41] LABS: PLATELET COUNT 44 K/uL (156-360)
[2017-07-29 12:00] LABS: BACTERIA RARE /HPF; EPITHELIAL CELLS NONE SEEN /HPF; MUCUS TRACE /LPF; RED BLOOD CELLS 15-20 /HPF (0-5); UCUL ADDED? YES; WHITE BLOOD CELLS TNTC /HPF (0-5)
[2017-07-29 17:30] LABS: METH RESISTANT S AUREUS PCR POSITIVE (NEGATIVE)
[2017-07-29 17:37] LABS: PROBE CHECK PASS
[2017-07-29 18:14] LABS: EOSINOPHIL (%) 2.2 % (0-5); EOSINOPHIL COUNT 0.1 K/uL (0-0.3); HEMATOCRIT 23.2 % (38.0-50.0); IMMATURE GRANULOCYTE (%) 0.3 % (0.0-0.7); INSTRUMENT ABS NEUTROPHIL CT 2.9 K/uL; LYMPHOCYTE COUNT 0.3 K/uL (1.0-2.8); MCH 29.3 PG (29.0-34.0); MCHC 32.3 G/DL (30.0-36.0); MCV 90.6 FL (86-99); MONOCYTE COUNT 0.3 K/uL (0-0.8); NEUTROPHIL (%) 80.4 % (45-76); NEUTROPHIL COUNT 2.9 K/uL (1.8-6.4); RBC DIS.WIDTH-CV 14.4 % (11.8-14.6); RBC DIS.WIDTH-SD 47.7 % (39-53); WHITE BLOOD COUNT 3.6 K/uL (4.1-10.2)
[2017-07-29 18:34] LABS: POINT-OF-CARE METER ID UU13113748
[2017-07-29 18:40] LABS: HEMATOLOGY COMMENT 1 SN; IMM.PLATELET FRACTION 3.2 (1-7); MEAN PLAT.VOLUME 12.3 uM^3 (9.0-12.4); PLAT.SUFFICIENCY DECREASED; PLATELET COUNT 49 K/uL (156-360); RED BLOOD COUNT 2.56 M/uL (4.00-5.50)
[2017-07-29 19:16] LABS: Estimated Average Glucose 148 mg/dL (70-123); HEMOGLOBIN A1c (GLYCOHEMOGLOB) 6.8 % HGB (Below 5.7)
[2017-07-30] VITALS (25 sets, daily range): BP systolic 68–121; BP diastolic 40–78
[2017-07-30 00:05] LABS: POINT-OF-CARE METER ID UU13113731
[2017-07-30 05:40] LABS: HEMATOCRIT 21.3 % (38.0-50.0); MCH 29.3 PG (29.0-34.0); MCHC 32.9 G/DL (30.0-36.0); MCV 89.1 FL (86-99); RBC DIS.WIDTH-CV 14.5 % (11.8-14.6); RBC DIS.WIDTH-SD 47.3 % (39-53); RED BLOOD COUNT 2.39 M/uL (4.00-5.50); WHITE BLOOD COUNT 2.7 K/uL (4.1-10.2)
[2017-07-30 06:00] LABS: IMM.PLATELET FRACTION 2.8 (1-7); MEAN PLAT.VOLUME 12.3 uM^3 (9.0-12.4); PLAT.SUFFICIENCY DECREASED; PLATELET COUNT 48 K/uL (156-360)
[2017-07-30 06:37] LABS: POINT-OF-CARE METER ID UU13113731
[2017-07-30 07:54] LABS: ALKALINE PHOSPHATASE 107 IU/L (3-129); ANION GAP 10 MEQ/L (2-14); CHLORIDE 110 MEQ/L (99-109); GFR ESTIMATE (CALCULATED) 33 mL/min/; GLUCOSE 154 mg/dL (70-99); POTASSIUM 5.1 MEQ/L (3.7-5.4); SAMPLE HEMOLYSIS CHECK 0; SAMPLE ICTERIC CHECK 0; SAMPLE LIPEMIA CHECK 0; SODIUM 146 MEQ/L (136-147); UREA NITROGEN (BUN) 72 mg/dL (9-23)
[2017-07-30 08:41] LABS: HEMATOCRIT 26.7 % (38.0-50.0); MCV 86.7 FL (86-99)
[2017-07-30] MEDS ORDERED: DUONEB 2.5-0.5 M3 ML AEROSOL (10:35)
[2017-07-30] MEDS ORDERED: PULMICORT0.5 MG/21 IH (10:35)
[2017-07-30] MEDS ORDERED: NYSTOP60 GM TP (10:35)
[2017-07-30 11:49] LABS: POINT-OF-CARE METER ID UU13113731
[2017-07-30 12:14] LABS: HEMATOCRIT 23.8 % (38.0-50.0); MCV 89.1 FL (86-99)
[2017-07-30 17:19] LABS: POINT-OF-CARE METER ID UU13113803
[2017-07-31] VITALS (29 sets, daily range): BP systolic 73–147; BP diastolic 42–102
[2017-07-31 01:45] LABS: POINT-OF-CARE METER ID UU14162636
[2017-07-31 05:19] LABS: BASE EXCESS 5.2 mEq/L (-3 to +3); CARBOXY HGB 1.7 % (0-5); METHEMOGLOBIN 1.5 % (0-1.5); pH 7.49 (7.35-7.45)
[2017-07-31 05:20] LABS: COMMENTS - BLOOD GASES C; DEVICE VENT; FI02 40 %; MECHANICAL RATE 18 resp/min; MODE AC; PCO2 38 mm Hg (35-45); PEEP 5 CM/H20; PO2 89 mm Hg (80-100); SITE LB; TIDAL VOLUME 500 ML; TOTAL RESP RATE 19 resp/min
[2017-07-31 05:48] LABS: POINT-OF-CARE METER ID UU14162636
[2017-07-31 05:53] LABS: HEMATOCRIT 21.7 % (38.0-50.0); MCH 28.7 PG (29.0-34.0); MCHC 32.3 G/DL (30.0-36.0); MCV 88.9 FL (86-99); MEAN PLAT.VOLUME 11.4 uM^3 (9.0-12.4); PLATELET COUNT 55 K/uL (156-360); RBC DIS.WIDTH-CV 14.8 % (11.8-14.6); RBC DIS.WIDTH-SD 47.8 % (39-53); RED BLOOD COUNT 2.44 M/uL (4.00-5.50); WHITE BLOOD COUNT 2.3 K/uL (4.1-10.2)
[2017-07-31 06:58] LABS: ANION GAP 8 MEQ/L (2-14); CHLORIDE 113 MEQ/L (99-109); GFR ESTIMATE (CALCULATED) 32 mL/min/; GLUCOSE 227 mg/dL (70-99); POTASSIUM 4.2 MEQ/L (3.7-5.4); SAMPLE HEMOLYSIS CHECK 0; SAMPLE ICTERIC CHECK 0; SAMPLE LIPEMIA CHECK 0; SODIUM 149 MEQ/L (136-147); UREA NITROGEN (BUN) 64 mg/dL (9-23)
[2017-07-31 12:39] LABS: POINT-OF-CARE METER ID UU14162636
[2017-07-31 18:01] LABS: POINT-OF-CARE METER ID UU14162636
[2017-08-01] VITALS (24 sets, daily range): BP systolic 82–126; BP diastolic 49–72
[2017-08-01 00:10] LABS: POINT-OF-CARE METER ID UU14208751
[2017-08-01 05:53] LABS: ANION GAP 13 MEQ/L (2-14); CHLORIDE 113 MEQ/L (99-109); POTASSIUM 4.1 MEQ/L (3.7-5.4); SAMPLE HEMOLYSIS CHECK 0; SAMPLE ICTERIC CHECK 0; SAMPLE LIPEMIA CHECK 0; SODIUM 149 MEQ/L (136-147)
[2017-08-01 05:55] LABS: EOSINOPHIL (%) 2.8 % (0-5); EOSINOPHIL COUNT 0.1 K/uL (0-0.3); HEMATOCRIT 26.1 % (38.0-50.0); IMMATURE GRANULOCYTE (%) 0.3 % (0.0-0.7); INSTRUMENT ABS NEUTROPHIL CT 2.6 K/uL; LYMPHOCYTE COUNT 0.3 K/uL (1.0-2.8); MCH 29.8 PG (29.0-34.0); MCV 90.3 FL (86-99); MONOCYTE (%) 7.2 % (3-12); MONOCYTE COUNT 0.2 K/uL (0-0.8); NEUTROPHIL (%) 81.2 % (45-76); NEUTROPHIL COUNT 2.6 K/uL (1.8-6.4); RBC DIS.WIDTH-CV 15.3 % (11.8-14.6); RBC DIS.WIDTH-SD 50.6 % (39-53); RED BLOOD COUNT 2.89 M/uL (4.00-5.50); WHITE BLOOD COUNT 3.2 K/uL (4.1-10.2)
[2017-08-01 05:59] LABS: GFR ESTIMATE (CALCULATED) 29 mL/min/; GLUCOSE 144 mg/dL (70-99); UREA NITROGEN (BUN) 54 mg/dL (9-23)
[2017-08-01 05:59] LABS: POINT-OF-CARE METER ID UU14314082
[2017-08-01 06:45] LABS: IMM.PLATELET FRACTION 2.4 (1-7); MEAN PLAT.VOLUME 11.8 uM^3 (9.0-12.4); PLAT.SUFFICIENCY VERY DECREASED; PLATELET COUNT 49 K/uL (156-360)
[2017-08-01 13:21] LABS: POINT-OF-CARE METER ID UU13113748
[2017-08-01 17:47] LABS: POINT-OF-CARE METER ID UU13113748
[2017-08-02] VITALS (23 sets, daily range): BP systolic 56–130; BP diastolic 43–74
[2017-08-02 01:08] LABS: POINT-OF-CARE METER ID UU14174217
[2017-08-02 05:37] LABS: EOSINOPHIL (%) 3.6 % (0-5); EOSINOPHIL COUNT 0.1 K/uL (0-0.3); HEMATOCRIT 27.3 % (38.0-50.0); IMMATURE GRANULOCYTE (%) 0.4 % (0.0-0.7); INSTRUMENT ABS NEUTROPHIL CT 2.2 K/uL; LYMPHOCYTE COUNT 0.2 K/uL (1.0-2.8); MCH 28.5 PG (29.0-34.0); MCHC 30.8 G/DL (30.0-36.0); MCV 92.5 FL (86-99); MONOCYTE (%) 7.6 % (3-12); MONOCYTE COUNT 0.2 K/uL (0-0.8); NEUTROPHIL (%) 79.6 % (45-76); NEUTROPHIL COUNT 2.2 K/uL (1.8-6.4); RBC DIS.WIDTH-CV 15.3 % (11.8-14.6); RBC DIS.WIDTH-SD 51.1 % (39-53); RED BLOOD COUNT 2.95 M/uL (4.00-5.50); WHITE BLOOD COUNT 2.8 K/uL (4.1-10.2)
[2017-08-02 06:04] LABS: ANION GAP 10 MEQ/L (2-14); CHLORIDE 115 MEQ/L (99-109); SAMPLE HEMOLYSIS CHECK 0; SAMPLE ICTERIC CHECK 0; SAMPLE LIPEMIA CHECK 0; SODIUM 151 MEQ/L (136-147)
[2017-08-02 06:09] LABS: GFR ESTIMATE (CALCULATED) 29 mL/min/; UREA NITROGEN (BUN) 52 mg/dL (9-23)
[2017-08-02 06:10] LABS: GLUCOSE 272 mg/dL (70-99)
[2017-08-02 06:42] LABS: IMM.PLATELET FRACTION 2.3 (1-7); MEAN PLAT.VOLUME 11.6 uM^3 (9.0-12.4); PLATELET COUNT 48 K/uL (156-360)
[2017-08-02 13:04] LABS: POINT-OF-CARE METER ID UU14314083
[2017-08-02 19:01] LABS: POINT-OF-CARE METER ID UU14314083
[2017-08-03] VITALS (14 sets, daily range): BP systolic 0–120; BP diastolic 0–73
[2017-08-03 00:24] LABS: POINT-OF-CARE METER ID UU14314082
[2017-08-03 05:46] LABS: POINT-OF-CARE METER ID UU13113803
[2017-08-03 07:33] LABS: EOSINOPHIL (%) 3.9 % (0-5); EOSINOPHIL COUNT 0.1 K/uL (0-0.3); HEMATOCRIT 28.5 % (38.0-50.0); IMMATURE GRANULOCYTE (%) 0.7 % (0.0-0.7); INSTRUMENT ABS NEUTROPHIL CT 2.3 K/uL; LYMPHOCYTE COUNT 0.3 K/uL (1.0-2.8); MCH 28.9 PG (29.0-34.0); MCHC 30.5 G/DL (30.0-36.0); MCV 94.7 FL (86-99); MONOCYTE (%) 4.2 % (3-12); MONOCYTE COUNT 0.1 K/uL (0-0.8); NEUTROPHIL COUNT 2.3 K/uL (1.8-6.4); PLATELET COUNT 52 K/uL (156-360); RBC DIS.WIDTH-CV 15.3 % (11.8-14.6); RBC DIS.WIDTH-SD 53.1 % (39-53); RED BLOOD COUNT 3.01 M/uL (4.00-5.50); WHITE BLOOD COUNT 2.9 K/uL (4.1-10.2)
[2017-08-03 08:02] LABS: ANION GAP 8 MEQ/L (2-14); CHLORIDE 118 MEQ/L (99-109); GFR ESTIMATE (CALCULATED) 30 mL/min/; GLUCOSE 203 mg/dL (70-99); POTASSIUM 4.1 MEQ/L (3.7-5.4); SAMPLE HEMOLYSIS CHECK 0; SAMPLE ICTERIC CHECK 0; SAMPLE LIPEMIA CHECK 0; SODIUM 154 MEQ/L (136-147); UREA NITROGEN (BUN) 48 mg/dL (9-23)
[2017-08-03 11:51] LABS: POINT-OF-CARE METER ID UU13113803
[2017-08-03 17:27] LABS: POINT-OF-CARE METER ID UU14208751
[2017-08-03 18:50] LABS: ANION GAP 7 MEQ/L (2-14); CHLORIDE 116 MEQ/L (99-109); GFR ESTIMATE (CALCULATED) 33 mL/min/; GLUCOSE 247 mg/dL (70-99); SAMPLE HEMOLYSIS CHECK 0; SAMPLE ICTERIC CHECK 0; SAMPLE LIPEMIA CHECK 0; SODIUM 151 MEQ/L (136-147); UREA NITROGEN (BUN) 47 mg/dL (9-23)
[2017-08-04] VITALS (7 sets, daily range): BP systolic 73–100; BP diastolic 46–71
[2017-08-04 01:16] LABS: POINT-OF-CARE METER ID UU14208751
[2017-08-04 04:53] LABS: POINT-OF-CARE METER ID UU14208751
[2017-08-04 05:23] LABS: HEMATOCRIT 28.9 % (38.0-50.0); MCH 29.4 PG (29.0-34.0); MCHC 30.8 G/DL (30.0-36.0); MCV 95.4 FL (86-99); PLATELET COUNT 56 K/uL (156-360); RBC DIS.WIDTH-CV 15.1 % (11.8-14.6); RBC DIS.WIDTH-SD 52.8 % (39-53); RED BLOOD COUNT 3.03 M/uL (4.00-5.50); WHITE BLOOD COUNT 3.2 K/uL (4.1-10.2)
[2017-08-04 05:53] LABS: ANION GAP 10 MEQ/L (2-14); CHLORIDE 115 MEQ/L (99-109); GFR ESTIMATE (CALCULATED) 35 mL/min/; GLUCOSE 204 mg/dL (70-99); POTASSIUM 3.7 MEQ/L (3.7-5.4); SAMPLE HEMOLYSIS CHECK 0; SAMPLE ICTERIC CHECK 0; SAMPLE LIPEMIA CHECK 0; SODIUM 153 MEQ/L (136-147); UREA NITROGEN (BUN) 44 mg/dL (9-23)
[2017-08-04 12:43] LABS: POINT-OF-CARE METER ID UU14162636
[2017-08-04 17:22] LABS: POINT-OF-CARE METER ID UU14162636
[2017-08-04 18:28] LABS: ANION GAP 7 MEQ/L (2-14); CHLORIDE 109 MEQ/L (99-109); GFR ESTIMATE (CALCULATED) 32 mL/min/; GLUCOSE 213 mg/dL (70-99); POTASSIUM 3.8 MEQ/L (3.7-5.4); SAMPLE HEMOLYSIS CHECK 0; SAMPLE ICTERIC CHECK 0; SAMPLE LIPEMIA CHECK 0; UREA NITROGEN (BUN) 44 mg/dL (9-23)
[2017-08-04 18:36] LABS: SODIUM 145 MEQ/L (136-147)
[2017-08-04 23:40] LABS: POINT-OF-CARE METER ID UU13113748
[2017-08-05] VITALS: BP 70/42
[2017-08-05 04:00] VITALS: BP 77/42
[2017-08-05 06:06] LABS: POINT-OF-CARE METER ID UU13113748
[2017-08-05 08:00] VITALS: BP 80/47
[2017-08-05 12:00] VITALS: BP 86/58
[2017-08-05 12:27] LABS: POINT-OF-CARE METER ID UU13113748
[2017-08-05 14:58] LABS: EOSINOPHIL (%) 6.1 % (0-5); EOSINOPHIL COUNT 0.3 K/uL (0-0.3); HEMATOCRIT 28.7 % (38.0-50.0); IMMATURE GRANULOCYTE (%) 0.4 % (0.0-0.7); INSTRUMENT ABS NEUTROPHIL CT 3.7 K/uL; LYMPHOCYTE COUNT 0.5 K/uL (1.0-2.8); MCH 28.4 PG (29.0-34.0); MCHC 31.4 G/DL (30.0-36.0); MCV 90.5 FL (86-99); MEAN PLAT.VOLUME 11.8 uM^3 (9.0-12.4); MONOCYTE (%) 6.9 % (3-12); MONOCYTE COUNT 0.3 K/uL (0-0.8); NEUTROPHIL (%) 76.4 % (45-76); NEUTROPHIL COUNT 3.7 K/uL (1.8-6.4); PLATELET COUNT 87 K/uL (156-360); RBC DIS.WIDTH-CV 14.6 % (11.8-14.6); RBC DIS.WIDTH-SD 48.4 % (39-53); RED BLOOD COUNT 3.17 M/uL (4.00-5.50); WHITE BLOOD COUNT 4.8 K/uL (4.1-10.2)
[2017-08-05 15:17] LABS: ANION GAP 7 MEQ/L (2-14); CHLORIDE 103 MEQ/L (99-109); SAMPLE HEMOLYSIS CHECK 0; SAMPLE ICTERIC CHECK 0; SAMPLE LIPEMIA CHECK 0; SODIUM 136 MEQ/L (136-147)
[2017-08-05 15:21] LABS: ALKALINE PHOSPHATASE 96 IU/L (3-129); GFR ESTIMATE (CALCULATED) 32 mL/min/; GLUCOSE 210 mg/dL (70-99); TOTAL BILIRUBIN 0.5 MG/DL (0.0-1.0); UREA NITROGEN (BUN) 45 mg/dL (9-23)
[2017-08-05 16:00] VITALS: BP 85/39
[2017-08-05 18:05] LABS: POINT-OF-CARE METER ID UU14174217
[2017-08-05 20:00] VITALS: BP 77/46
[2017-08-06] VITALS: BP 74/42
[2017-08-06 00:22] LABS: POINT-OF-CARE METER ID UU14174217
[2017-08-06 04:00] VITALS: BP 84/3
[2017-08-06 05:07] LABS: EOSINOPHIL (%) 5.1 % (0-5); EOSINOPHIL COUNT 0.2 K/uL (0-0.3); HEMATOCRIT 28.3 % (38.0-50.0); IMMATURE GRANULOCYTE (%) 0.8 % (0.0-0.7); INSTRUMENT ABS NEUTROPHIL CT 2.9 K/uL; LYMPHOCYTE COUNT 0.5 K/uL (1.0-2.8); MCH 28.7 PG (29.0-34.0); MCHC 32.2 G/DL (30.0-36.0); MCV 89.3 FL (86-99); MEAN PLAT.VOLUME 12.5 uM^3 (9.0-12.4); MONOCYTE (%) 7.6 % (3-12); MONOCYTE COUNT 0.3 K/uL (0-0.8); NEUTROPHIL (%) 73.9 % (45-76); NEUTROPHIL COUNT 2.9 K/uL (1.8-6.4); PLATELET COUNT 91 K/uL (156-360); RBC DIS.WIDTH-CV 14.6 % (11.8-14.6); RBC DIS.WIDTH-SD 47.5 % (39-53); RED BLOOD COUNT 3.17 M/uL (4.00-5.50)
[2017-08-06 06:24] LABS: POINT-OF-CARE METER ID UU13113803
[2017-08-06 08:00] VITALS: BP 85/47
[2017-08-06 11:46] LABS: POINT-OF-CARE METER ID UU13113803
[2017-08-06 12:00] VITALS: BP 83/47
[2017-08-06] MEDS ORDERED: NATURAL BALANCE15 M1 BOTH EYES (13:40)
[2017-08-06] MEDS ORDERED: LEVEMIR100 UNIT/2 SC (14:43)
[2017-08-06 16:00] VITALS: BP 90/50
[2017-08-06 16:55] LABS: POINT-OF-CARE METER ID UU13113803
== END 2017-08-06 17:27 | DRG 870 ==
LOC: EME → EDBD 09:25 → EME 09:25 → EDOF 13:44 → 4WEST 13:44 → ENRESERV 13:46 → EDOF 13:57 → ENRESERV 14:51 → 4WEST 16:05
PROVIDERS: Emergency Medicine; Hospitalist; Internal Medicine; Internal Medicine Critical Care Medicine; Internal Medicine Gastroenterology; Physician Assistant; Surgery
PROC: 5A1955Z Respiratory Ventilation, Greater than 96 Consecutive Hours (ICD-10-PCS; principal; 2017-07-29)
PROC: 30233N1 Transfusion of Nonautologous Red Blood Cells into Peripheral Vein, Percutaneous Approach (ICD-10-PCS; 2017-07-29)
PROC: 30233R1 Transfusion of Nonautologous Platelets into Peripheral Vein, Percutaneous Approach (ICD-10-PCS; 2017-07-30)
DX: A41.9 Sepsis, unspecified organism (principal); N39.0 Urinary tract infection, site not specified; J18.9 Pneumonia, unspecified organism; J44.0 Chronic obstructive pulmonary disease with (acute) lower respiratory infection; E87.0 Hyperosmolality and hypernatremia; D62 Acute posthemorrhagic anemia; K31.811 Angiodysplasia of stomach and duodenum with bleeding; K55.21 Angiodysplasia of colon with hemorrhage; D61.818 Other pancytopenia; R18.8 Other ascites; K76.6 Portal hypertension; E11.65 Type 2 diabetes mellitus with hyperglycemia; E11.22 Type 2 diabetes mellitus with diabetic chronic kidney disease; E88.09 Other disorders of plasma-protein metabolism, not elsewhere classified; R47.01 Aphasia; L89.220 Pressure ulcer of left hip, unstageable; L89.890 Pressure ulcer of other site, unstageable; L97.319 Non-pressure chronic ulcer of right ankle with unspecified severity; L97.819 Non-pressure chronic ulcer of other part of right lower leg with unspecified severity; L97.829 Non-pressure chronic ulcer of other part of left lower leg with unspecified severity; L03.116 Cellulitis of left lower limb; L03.115 Cellulitis of right lower limb; S51.812A Laceration without foreign body of left forearm, initial encounter; S51.811A Laceration without foreign body of right forearm, initial encounter; R21 Rash and other nonspecific skin eruption; B96.20 Unspecified Escherichia coli [E. coli] as the cause of diseases classified elsewhere; I12.9 Hypertensive chronic kidney disease with stage 1 through stage 4 chronic kidney disease, or unspecified chronic kidney disease; N18.3 Chronic kidney disease, stage 3 (moderate); J96.10 Chronic respiratory failure, unspecified whether with hypoxia or hypercapnia; K72.10 Chronic hepatic failure without coma; K74.60 Unspecified cirrhosis of liver; B18.2 Chronic viral hepatitis C; I85.00 Esophageal varices without bleeding; K52.9 Noninfective gastroenteritis and colitis, unspecified; K31.89 Other diseases of stomach and duodenum; I35.0 Nonrheumatic aortic (valve) stenosis; Z16.12 Extended spectrum beta lactamase (ESBL) resistance; F11.20 Opioid dependence, uncomplicated; G89.29 Other chronic pain; I95.1 Orthostatic hypotension; R79.1 Abnormal coagulation profile; K21.9 Gastro-esophageal reflux disease without esophagitis; D73.1 Hypersplenism; E78.5 Hyperlipidemia, unspecified; G47.33 Obstructive sleep apnea (adult) (pediatric); F41.9 Anxiety disorder, unspecified; N40.0 Benign prostatic hyperplasia without lower urinary tract symptoms; E03.9 Hypothyroidism, unspecified; Y95 Nosocomial condition; E66.01 Morbid (severe) obesity due to excess calories; Z68.35 Body mass index [BMI] 35.0-35.9, adult; Z99.11 Dependence on respirator [ventilator] status; Z93.0 Tracheostomy status; Z91.81 History of falling; Z79.4 Long term (current) use of insulin; Z87.01 Personal history of pneumonia (recurrent); Z87.891 Personal history of nicotine dependence
CPT/HCPCS: 36600; 70450; 71010; 74176; 80048; 80048 91; 80053; 81003; 82140; 82803; 82948; 83036; 83605; 84100; 84295; 84484; 85014; 85018; 85025; 85025 91; 85027; 85610; 85730; 86850; 86900; 86901; 86920; 87040; 87070; 87077; 87081; 87086; 87186; 87205; 87641; 93005; 94002; 94003; 94640; 94640 76; 94760; 99202; 99281; 99285; A6212; C9113; J1335; J1815; J2060; J2354; J2543; J3370; J7030; J7050; J7070; P9016; P9035

== ENCOUNTER → 2017-08-29 | Outpatient (CLI) | payer OTHER ==
[~2017-08-29] MED LIST changes: +FEOSOL325 MG PO; +LYRICA50 MG PO; +NATURAL BALANCE15 M1 BOTH EYES; +NYSTOP60 GM TP; +XIFAXAN550 MG PO
[2017-08-29 14:11] LABS: TYPE OF FLUID PARACENTESIS
[2017-08-29 14:49] LABS: BODY FLUID LDH 47 IU/L
[2017-08-29 15:07] LABS: BODY FLUID RBC'S 290 /MM^3 (0-100); BODY FLUID WBC'S 325 /MM^3 (0-500); RED CELL AREA COUNTED 18; RED CELL DILUTION 1; WBC AREA COUNTED 18; WBC DILUTION 1; WHITE CELL RAW COUNT 585
[2017-08-29 15:10] LABS: BODY FLUID EOSINOPHILS 0 % (0-25); BODY FLUID PROTEIN < 3.0 G/DL; MONO RAW COUNT 89; MONONUCLEAR WBC'S 89 %; POLY RAW COUNT 11; POLYNUCLEAR WBC'S 11 % (0-25)
== END | disposition designated cancer center or children's hospital (05) ==
LOC: RAD 13:01
PROVIDERS: Internal Medicine
PROC: 0W9G3ZZ Drainage of Peritoneal Cavity, Percutaneous Approach (ICD-10-PCS; principal; 2017-08-29)
DX: R18.8 Other ascites (principal)
CPT/HCPCS: 49083; 82945; 83615 91; 84157; 88108; 88305; 89051; 94799

== ENCOUNTER → 2017-11-22 | Outpatient (CLI) | payer OTHER | LOC: RAD 13:00 | DX: K74.60 Unspecified cirrhosis of liver (principal); R18.8 Other ascites; K76.89 Other specified diseases of liver; N20.0 Calculus of kidney; I70.90 Unspecified atherosclerosis; M47.899 Other spondylosis, site unspecified; M41.9 Scoliosis, unspecified; R91.8 Other nonspecific abnormal finding of lung field | CPT/HCPCS: 74176 ==

== ENCOUNTER 2017-12-03 09:18 | Emergency (ER) | payer OTHER ==
[~2017-12-03] VITALS: Ht 157.5 cm; Wt 72.0 kg
[2017-12-03 10:25] LABS: CHLORIDE 106 mEq/L (99-109); POTASSIUM 5.2 mEq/L (3.7-5.4); SODIUM 142 mEq/L (136-147)
[2017-12-03 10:27] LABS: BASOPHIL (%) 0.8 % (0-1); EOSINOPHIL (%) 2.4 % (0-5); EOSINOPHIL COUNT 0.1 K/uL (0-0.3); GLUCOSE 140 mg/dL (70-99); HEMATOCRIT 21.4 % (38.0-50.0); HEMOGLOBIN 6.9 G/DL (12.5-16.6); IMMATURE GRANULOCYTE (%) 0.3 % (0.0-0.7); LYMPHOCYTE (%) 7.7 % (15-42); LYMPHOCYTE COUNT 0.3 K/uL (1.0-2.8); MCHC 32.2 G/DL (30.0-36.0); MONOCYTE (%) 7.4 % (3-12); MONOCYTE COUNT 0.3 K/uL (0-0.8); NEUTROPHIL (%) 81.4 % (45-76); NEUTROPHIL COUNT 3.1 K/uL (1.8-6.4); PLATELET COUNT 75 K/uL (156-360); RBC DIS.WIDTH-SD 51.1 % (39-53); WHITE BLOOD COUNT 3.8 K/uL (4.1-10.2)
[2017-12-03 10:31] LABS: CREATININE 2.4 mg/dL (0.6-1.3); GFR ESTIMATE (CALCULATED) 29 mL/min/ (58.99-99999)
[2017-12-03 10:32] LABS: UREA NITROGEN (BUN) 53 mg/dL (9-23)
[2017-12-03 13:13] VITALS: BP 93/62
[2017-12-04] MEDS ORDERED: CALCIUM 600 +1 EAC1 PO (14:24)
[2017-12-04] MEDS ORDERED: LEVEMIR100 UNIT/2 SC (14:29)
[2017-12-04] MEDS ORDERED: CONSTULOSE10 GM/15 M PO ×2 (14:32→14:33)
[2017-12-04] MEDS ORDERED: DOLOPHINE HCL5 MG PO (14:35)
[2017-12-04] MEDS ORDERED: ROXICODONE5 MG PO (14:38)
[2017-12-04] MEDS ORDERED: MYDRIACYL15 ML BOTH EYES (14:43)
[2017-12-04] MEDS ORDERED: [UNRECOGNIZED DRUG - CODE] IV (14:45)
[2017-12-04] MEDS ORDERED: KAYEXALATE15 GM/60 M PO (14:46)
[2017-12-04] MEDS ORDERED: ARTIFICIAL TEAR1510 BOTH EYES (14:47)
[2017-12-04] MEDS ORDERED: GLUCAGEN1 MG/1 ML IM (15:42)
[2017-12-04] MEDS ORDERED: PULMICORT0.5 MG/21 IH (15:44)
[2017-12-04] MEDS ORDERED: ACETAMINOPHEN325 M1 PO (15:44)
[2017-12-04] MEDS ORDERED: ONDANSETRON HCL4 MG PO (15:44)
[2017-12-04] MEDS ORDERED: DUONEB 2.5-0.5 M3 ML AEROSOL (15:45)
== END 2017-12-03 13:14 | disposition short-term general hospital (02) ==
LOC: EME 09:18
PROVIDERS: Emergency Medicine
DX: J95.01 Hemorrhage from tracheostomy stoma (principal); D64.9 Anemia, unspecified; E11.9 Type 2 diabetes mellitus without complications; J44.9 Chronic obstructive pulmonary disease, unspecified; K74.60 Unspecified cirrhosis of liver; N40.0 Benign prostatic hyperplasia without lower urinary tract symptoms; Z99.11 Dependence on respirator [ventilator] status; Z79.4 Long term (current) use of insulin; Z79.891 Long term (current) use of opiate analgesic; G89.29 Other chronic pain
CPT/HCPCS: 71045; 80048; 85025; 86850; 86900; 86901; 86920; 94002; 99281; 99284

== ENCOUNTER 2017-12-04 08:24 | Emergency (ER) | payer OTHER ==
[~2017-12-04] VITALS: Ht 170.2 cm; Wt 88.2 kg
[2017-12-04 08:56] LABS: BASOPHIL (%) 0.3 % (0-1); EOSINOPHIL (%) 2.9 % (0-5); EOSINOPHIL COUNT 0.1 K/uL (0-0.3); HEMATOCRIT 25.5 % (38.0-50.0); HEMOGLOBIN 8.2 G/DL (12.5-16.6); IMMATURE GRANULOCYTE (%) 0.3 % (0.0-0.7); LYMPHOCYTE (%) 7.7 % (15-42); LYMPHOCYTE COUNT 0.3 K/uL (1.0-2.8); MCH 29.5 PG (29.0-34.0); MCHC 32.2 G/DL (30.0-36.0); MCV 91.7 FL (86-99); MONOCYTE (%) 6.6 % (3-12); MONOCYTE COUNT 0.3 K/uL (0-0.8); NEUTROPHIL (%) 82.2 % (45-76); NEUTROPHIL COUNT 3.1 K/uL (1.8-6.4); PLATELET COUNT 79 K/uL (156-360); RBC DIS.WIDTH-CV 15.4 % (11.8-14.6); RBC DIS.WIDTH-SD 51.8 % (39-53); WHITE BLOOD COUNT 3.8 K/uL (4.1-10.2)
[2017-12-04 08:57] LABS: RED BLOOD COUNT 2.78 M/uL (4.00-5.50)
[2017-12-04 09:04] LABS: CHLORIDE 107 mEq/L (99-109); POTASSIUM 4.9 mEq/L (3.7-5.4); SODIUM 142 mEq/L (136-147)
[2017-12-04 09:06] LABS: GLUCOSE 123 mg/dL (70-99)
[2017-12-04 09:10] LABS: CREATININE 2.4 mg/dL (0.6-1.3); GFR ESTIMATE (CALCULATED) 29 mL/min/ (58.99-99999); UREA NITROGEN (BUN) 56 mg/dL (9-23)
[2017-12-04] MEDS ORDERED: CALCIUM 600 +1 EAC1 PO (14:24)
[2017-12-04] MEDS ORDERED: LEVEMIR100 UNIT/2 SC (14:29)
[2017-12-04] MEDS ORDERED: CONSTULOSE10 GM/15 M PO ×2 (14:32→14:33)
[2017-12-04] MEDS ORDERED: DOLOPHINE HCL5 MG PO (14:35)
[2017-12-04] MEDS ORDERED: ROXICODONE5 MG PO (14:38)
[2017-12-04] MEDS ORDERED: MYDRIACYL15 ML BOTH EYES (14:43)
[2017-12-04] MEDS ORDERED: [UNRECOGNIZED DRUG - CODE] IV (14:45)
[2017-12-04] MEDS ORDERED: KAYEXALATE15 GM/60 M PO (14:46)
[2017-12-04] MEDS ORDERED: ARTIFICIAL TEAR1510 BOTH EYES (14:47)
[2017-12-04] MEDS ORDERED: GLUCAGEN1 MG/1 ML IM (15:42)
[2017-12-04] MEDS ORDERED: PULMICORT0.5 MG/21 IH (15:44)
[2017-12-04] MEDS ORDERED: ONDANSETRON HCL4 MG PO (15:44)
[2017-12-04] MEDS ORDERED: ACETAMINOPHEN325 M1 PO (15:44)
[2017-12-04] MEDS ORDERED: DUONEB 2.5-0.5 M3 ML AEROSOL (15:45)
[2017-12-04 18:10] VITALS: BP 108/61
== END 2017-12-04 18:43 | disposition designated cancer center or children's hospital (05) ==
LOC: EME 08:24
PROVIDERS: Emergency Medicine
PROC: 0BJ08ZZ Inspection of Tracheobronchial Tree, Via Natural or Artificial Opening Endoscopic (ICD-10-PCS; principal; 2017-12-04)
PROC: 0B9J8ZX Drainage of Left Lower Lung Lobe, Via Natural or Artificial Opening Endoscopic, Diagnostic (ICD-10-PCS; principal; 2017-12-04)
PROC: 5A0935Z Assistance with Respiratory Ventilation, Less than 24 Consecutive Hours (ICD-10-PCS; principal; 2017-12-04)
DX: R04.2 Hemoptysis (principal); J95.01 Hemorrhage from tracheostomy stoma; D64.9 Anemia, unspecified; R91.8 Other nonspecific abnormal finding of lung field; R18.8 Other ascites; E11.9 Type 2 diabetes mellitus without complications; J44.9 Chronic obstructive pulmonary disease, unspecified; N40.0 Benign prostatic hyperplasia without lower urinary tract symptoms; G89.29 Other chronic pain; Z99.11 Dependence on respirator [ventilator] status; Z79.4 Long term (current) use of insulin; Z79.891 Long term (current) use of opiate analgesic
CPT/HCPCS: 71045; 71250; 80048; 85025; 94002; 94760; 99281; 99285; J2250

== ENCOUNTER 2017-12-06 14:29 | Inpatient (IN) | payer OTHER ==
[~2017-12-06] VITALS: Ht 157.5 cm; Wt 87.6 kg
[~2017-12-06 14:29] MED LIST changes: +ARTIFICIAL TEAR1510 BOTH EYES; +CALCIUM 600 +1 EAC1 PO; +CONSTULOSE10 GM/15 M PO; +DOLOPHINE HCL5 MG PO; +GLUCAGEN1 MG/1 ML IM; +KAYEXALATE15 GM/60 M PO; +MYDRIACYL15 ML BOTH EYES; +ONDANSETRON HCL4 MG PO; +[UNRECOGNIZED DRUG - CODE] IV
[2017-12-06 16:10] LABS: HEMATOCRIT 23.2 % (38.0-50.0); HEMOGLOBIN 7.5 G/DL (12.5-16.6); MCH 30.1 PG (29.0-34.0); MCHC 32.3 G/DL (30.0-36.0); MCV 93.2 FL (86-99); PLATELET COUNT 70 K/uL (156-360); RBC DIS.WIDTH-CV 15.3 % (11.8-14.6); RBC DIS.WIDTH-SD 52.4 % (39-53); RED BLOOD COUNT 2.49 M/uL (4.00-5.50)
[2017-12-06 16:23] LABS: CHLORIDE 108 mEq/L (99-109); POTASSIUM 4.9 mEq/L (3.7-5.4); SODIUM 143 mEq/L (136-147)
[2017-12-06 16:24] LABS: GLUCOSE 154 mg/dL (70-99)
[2017-12-06 16:28] LABS: CREATININE 2.3 mg/dL (0.6-1.3); GFR ESTIMATE (CALCULATED) 30 mL/min/ (58.99-99999)
[2017-12-06 16:29] LABS: UREA NITROGEN (BUN) 53 mg/dL (9-23)
[2017-12-06] MEDS ORDERED: NYSTOP60 GM TP (17:13)
[2017-12-06 18:32] VITALS: BP 89/64
[2017-12-06 19:41] VITALS: BP 81/53
[2017-12-06 20:50] VITALS: BP 82/53
[2017-12-06 21:26] VITALS: BP 104/62
[2017-12-06 22:15] VITALS: BP 94/53
[2017-12-06 23:02] VITALS: BP 94/53
[2017-12-07] VITALS (23 sets, daily range): BP systolic 74–112; BP diastolic 48–91
[2017-12-07 00:43] LABS: HEMATOCRIT 25.9 % (38.0-50.0); HEMOGLOBIN 8.5 G/DL (12.5-16.6); MCV 91.5 FL (86-99)
[2017-12-07 04:34] LABS: BASOPHIL (%) 0.8 % (0-1); EOSINOPHIL (%) 5.9 % (0-5); EOSINOPHIL COUNT 0.2 K/uL (0-0.3); HEMATOCRIT 26.8 % (38.0-50.0); HEMOGLOBIN 8.8 G/DL (12.5-16.6); IMMATURE GRANULOCYTE (%) 0.4 % (0.0-0.7); LYMPHOCYTE (%) 13.4 % (15-42); LYMPHOCYTE COUNT 0.3 K/uL (1.0-2.8); MCH 29.8 PG (29.0-34.0); MCHC 32.8 G/DL (30.0-36.0); MCV 90.8 FL (86-99); MONOCYTE (%) 9.8 % (3-12); MONOCYTE COUNT 0.3 K/uL (0-0.8); NEUTROPHIL (%) 69.7 % (45-76); NEUTROPHIL COUNT 1.8 K/uL (1.8-6.4); PLATELET COUNT 75 K/uL (156-360); RBC DIS.WIDTH-CV 15.6 % (11.8-14.6); RBC DIS.WIDTH-SD 51.9 % (39-53); RED BLOOD COUNT 2.95 M/uL (4.00-5.50); WHITE BLOOD COUNT 2.5 K/uL (4.1-10.2)
[2017-12-07 04:49] LABS: CHLORIDE 110 mEq/L (99-109); POTASSIUM 4.7 mEq/L (3.7-5.4); SODIUM 143 mEq/L (136-147)
[2017-12-07 04:50] LABS: GLUCOSE 137 mg/dL (70-99)
[2017-12-07 04:54] LABS: CREATININE 2.2 mg/dL (0.6-1.3); GFR ESTIMATE (CALCULATED) 32 mL/min/ (58.99-99999)
[2017-12-07 04:55] LABS: UREA NITROGEN (BUN) 49 mg/dL (9-23)
[2017-12-07 12:11] LABS: HEMATOCRIT 28.8 % (38.0-50.0); HEMOGLOBIN 9.3 G/DL (12.5-16.6); MCV 92.3 FL (86-99)
[2017-12-07 17:52] LABS: HEMATOCRIT 27.5 % (38.0-50.0); MCV 92.6 FL (86-99)
[2017-12-08] VITALS (13 sets, daily range): BP systolic 78–115; BP diastolic 47–72
[2017-12-09 02:04] VITALS: BP 98/65
[2017-12-09 04:28] VITALS: BP 82/52
[2017-12-09 13:02] VITALS: BP 105/64
[2017-12-09 18:55] LABS: INTER. NORMALIZED RATIO 1.2
[2017-12-09 18:58] LABS: PTT 33.3 SEC (25-37)
[2017-12-09 20:02] VITALS: BP 98/49
[2017-12-10] VITALS (8 sets, daily range): BP systolic 77–97; BP diastolic 48–86
[2017-12-10 06:18] LABS: EOSINOPHIL (%) 5.7 % (0-5); EOSINOPHIL COUNT 0.1 K/uL (0-0.3); HEMATOCRIT 28.2 % (38.0-50.0); HEMOGLOBIN 8.7 G/DL (12.5-16.6); IMMATURE GRANULOCYTE (%) 0.5 % (0.0-0.7); LYMPHOCYTE (%) 16.7 % (15-42); LYMPHOCYTE COUNT 0.4 K/uL (1.0-2.8); MCHC 30.9 G/DL (30.0-36.0); MONOCYTE (%) 10.5 % (3-12); MONOCYTE COUNT 0.2 K/uL (0-0.8); NEUTROPHIL (%) 65.6 % (45-76); NEUTROPHIL COUNT 1.4 K/uL (1.8-6.4); PLATELET COUNT 71 K/uL (156-360); RBC DIS.WIDTH-CV 14.9 % (11.8-14.6); RBC DIS.WIDTH-SD 52.1 % (39-53); WHITE BLOOD COUNT 2.1 K/uL (4.1-10.2)
[2017-12-10 07:26] LABS: ALBUMIN 2.7 G/DL (3.2-4.8); ALKALINE PHOSPHATASE 121 IU/L (3-129); ALT (GPT) 21 IU/L (3-49); AST (GOT) 23 IU/L (2-34); CHLORIDE 107 MEQ/L (99-109); CREATININE 2.4 MG/DL (0.6-1.3); DIRECT BILIRUBIN 0.1 mg/dL (0.0-0.3); GFR ESTIMATE (CALCULATED) 29 mL/min/ (58.99-99999); GLUCOSE 144 mg/dL (70-99); POTASSIUM 5.1 MEQ/L (3.7-5.4); SODIUM 141 MEQ/L (136-147); TOTAL BILIRUBIN 0.4 MG/DL (0.0-1.0); UREA NITROGEN (BUN) 43 mg/dL (9-23)
[2017-12-11] VITALS: BP 97/52
[2017-12-11 04:00] VITALS: BP 118/70
[2017-12-11 08:30] VITALS: BP 81/51
== END 2017-12-11 13:07 | DRG 207 ==
LOC: EME 14:29 → EDOF 18:31 → 4WEST 18:31 → ENRESERV 18:39 → 4WEST 22:19
PROVIDERS: Emergency Medicine; Internal Medicine; Internal Medicine Critical Care Medicine; Surgery
PROC: 30233N1 Transfusion of Nonautologous Red Blood Cells into Peripheral Vein, Percutaneous Approach (ICD-10-PCS; principal; 2017-12-06)
PROC: 5A1955Z Respiratory Ventilation, Greater than 96 Consecutive Hours (ICD-10-PCS; principal; 2017-12-06)
DX: J95.01 Hemorrhage from tracheostomy stoma (principal); S19.82XA Other specified injuries of cervical trachea, initial encounter; X58.XXXA Exposure to other specified factors, initial encounter; J96.10 Chronic respiratory failure, unspecified whether with hypoxia or hypercapnia; D61.818 Other pancytopenia; K74.60 Unspecified cirrhosis of liver; B19.20 Unspecified viral hepatitis C without hepatic coma; E03.9 Hypothyroidism, unspecified; K21.9 Gastro-esophageal reflux disease without esophagitis; E11.22 Type 2 diabetes mellitus with diabetic chronic kidney disease; G89.29 Other chronic pain; H40.9 Unspecified glaucoma; I35.0 Nonrheumatic aortic (valve) stenosis; I95.89 Other hypotension; N18.3 Chronic kidney disease, stage 3 (moderate); N40.0 Benign prostatic hyperplasia without lower urinary tract symptoms; G47.00 Insomnia, unspecified; J44.9 Chronic obstructive pulmonary disease, unspecified; Z66 Do not resuscitate; Z79.4 Long term (current) use of insulin; Z87.891 Personal history of nicotine dependence; Z99.11 Dependence on respirator [ventilator] status; Z93.0 Tracheostomy status
CPT/HCPCS: 71045; 71250; 80048; 80076; 81003; 82948; 85014; 85018; 85025; 85027; 85610; 85730; 86850; 86900; 86901; 86920; 87077; 87081; 87502; 87641; 93306; 94002; 94003; 94640; 94640 76; 94760; 99202; 99281; 99284; 99285; J1644; J1815; J2250; J7030; P9016

== ENCOUNTER → 2017-12-19 | Outpatient (CLI) | payer OTHER | LOC: RAD 07:37 | PROC: 0W9G3ZZ Drainage of Peritoneal Cavity, Percutaneous Approach (ICD-10-PCS; principal; 2017-12-19) | DX: R18.8 Other ascites (principal); K74.60 Unspecified cirrhosis of liver | CPT/HCPCS: 49083; 94002 ==

== ENCOUNTER 2017-12-31 10:03 | Emergency (ER) | payer OTHER ==
[~2017-12-31] VITALS: Ht 157.5 cm; Wt 96.8 kg
[2017-12-31 11:14] LABS: BASOPHIL (%) 0.7 % (0-1); EOSINOPHIL (%) 4.4 % (0-5); EOSINOPHIL COUNT 0.1 K/uL (0-0.3); HEMATOCRIT 25.7 % (38.0-50.0); HEMOGLOBIN 8.3 G/DL (12.5-16.6); IMMATURE GRANULOCYTE (%) 0.4 % (0.0-0.7); LYMPHOCYTE (%) 12.5 % (15-42); LYMPHOCYTE COUNT 0.3 K/uL (1.0-2.8); MCHC 32.3 G/DL (30.0-36.0); MCV 92.8 FL (86-99); MONOCYTE (%) 7.7 % (3-12); MONOCYTE COUNT 0.2 K/uL (0-0.8); NEUTROPHIL (%) 74.3 % (45-76); PLATELET COUNT 91 K/uL (156-360); RBC DIS.WIDTH-SD 47.7 % (39-53); RED BLOOD COUNT 2.77 M/uL (4.00-5.50); WHITE BLOOD COUNT 2.7 K/uL (4.1-10.2)
[2017-12-31 11:22] LABS: ALBUMIN 2.4 g/dL (3.2-4.8); INTER. NORMALIZED RATIO 1.3
[2017-12-31 11:23] LABS: CHLORIDE 107 mEq/L (99-109); POTASSIUM 4.9 mEq/L (3.7-5.4); SODIUM 142 mEq/L (136-147)
[2017-12-31 11:25] LABS: GLUCOSE 114 mg/dL (70-99); TOTAL PROTEIN 6.9 g/dL (6.4-8.3)
[2017-12-31 11:27] LABS: TOTAL BILIRUBIN 0.4 mg/dL (0.0-1.0)
[2017-12-31 11:28] LABS: ALKALINE PHOSPHATASE 116 IU/L (3-129)
[2017-12-31 11:29] LABS: CREATININE 2.6 mg/dL (0.6-1.3); GFR ESTIMATE (CALCULATED) 26 mL/min/ (58.99-99999)
[2017-12-31 11:30] LABS: AST (GOT) 27 IU/L (2-34); UREA NITROGEN (BUN) 46 mg/dL (9-23)
[2017-12-31 11:31] LABS: ALT (GPT) 15 IU/L (3-49)
[2017-12-31 21:17] VITALS: BP 87/56
== END 2017-12-31 21:55 ==
LOC: EME 10:03
PROVIDERS: Emergency Medicine
PROC: 0W9G3ZZ Drainage of Peritoneal Cavity, Percutaneous Approach (ICD-10-PCS; principal; 2017-12-31)
DX: R18.8 Other ascites (principal); K74.60 Unspecified cirrhosis of liver; J44.9 Chronic obstructive pulmonary disease, unspecified; J96.90 Respiratory failure, unspecified, unspecified whether with hypoxia or hypercapnia; Z99.11 Dependence on respirator [ventilator] status; E11.9 Type 2 diabetes mellitus without complications; Z79.4 Long term (current) use of insulin; G89.29 Other chronic pain
CPT/HCPCS: 49083; 71045; 80053; 85025; 85610; 99281; 99285; J2060

== ENCOUNTER → 2018-01-15 | Outpatient (CLI) | payer OTHER | LOC: RAD 11:00 | PROC: 0W9G3ZZ Drainage of Peritoneal Cavity, Percutaneous Approach (ICD-10-PCS; principal; 2018-01-15) | DX: R18.8 Other ascites (principal) | CPT/HCPCS: 49083 ==

== ENCOUNTER → 2018-01-22 | Outpatient (CLI) | payer OTHER | END | disposition home or self-care (01) | LOC: OPR 13:00 → EDSTATUS 13:00 → OPR 13:23 | PROVIDERS: Internal Medicine | PROC: 0W9G30Z Drainage of Peritoneal Cavity with Drainage Device, Percutaneous Approach (ICD-10-PCS; principal; 2018-01-22) | DX: R18.8 Other ascites (principal) | CPT/HCPCS: 75989; 82948; C1729; J3010 ==

== ENCOUNTER 2018-03-05 11:40 | Inpatient (IN) | payer OTHER ==
[~2018-03-05] VITALS: Ht 167.6 cm; Wt 75.6 kg
[2018-03-05] VITALS (7 sets, daily range): BP systolic 62–94; BP diastolic 38–60
[2018-03-05 15:11] LABS: HEMATOCRIT 25.9 % (38.0-50.0); HEMOGLOBIN 8.7 G/DL (12.5-16.6); MCH 28.2 PG (29.0-34.0); MCHC 33.6 G/DL (30.0-36.0); MCV 84.1 FL (86-99); PLATELET COUNT 104 K/uL (156-360); RBC DIS.WIDTH-SD 42.9 % (39-53); RED BLOOD COUNT 3.08 M/uL (4.00-5.50); WHITE BLOOD COUNT 5.5 K/uL (4.1-10.2)
[2018-03-05 15:33] LABS: ALBUMIN 1.8 g/dL (3.2-4.8); CHLORIDE 94 mEq/L (99-109); POTASSIUM 4.5 mEq/L (3.7-5.4); SODIUM 133 mEq/L (136-147)
[2018-03-05 15:35] LABS: GLUCOSE 192 mg/dL (70-99)
[2018-03-05 15:36] LABS: TOTAL PROTEIN 6.2 g/dL (6.4-8.3)
[2018-03-05 15:37] LABS: TOTAL BILIRUBIN 0.5 mg/dL (0.0-1.0)
[2018-03-05 15:39] LABS: ALKALINE PHOSPHATASE 99 IU/L (3-129); CREATININE 3.1 mg/dL (0.6-1.3); GFR ESTIMATE (CALCULATED) 21 mL/min/ (58.99-99999)
[2018-03-05 15:40] LABS: UREA NITROGEN (BUN) 98 mg/dL (9-23)
[2018-03-05 15:41] LABS: AST (GOT) 22 IU/L (2-34)
[2018-03-05 15:42] LABS: ALT (GPT) 10 IU/L (3-49)
[2018-03-05 17:12] LABS: PTT 37.9 SEC (25-37)
[2018-03-05] MEDS ORDERED: CALCIUM ACETAT667 MG PO (17:22)
[2018-03-05] MEDS ORDERED: ZYRTEC5 MG PO (17:23)
[2018-03-05] MEDS ORDERED: ATROPINE 1100 DROP/5 BOTH EYES (17:24)
[2018-03-05] MEDS ORDERED: DUONEB 2.5-0.5 M3 ML AEROSOL (17:31)
[2018-03-05 22:38] LABS: HEMATOCRIT 22.1 % (38.0-50.0); HEMOGLOBIN 7.2 G/DL (12.5-16.6); MCV 85.7 FL (86-99)
[2018-03-06] VITALS (35 sets, daily range): BP systolic 62–115; BP diastolic 36–80
[2018-03-06 05:15] LABS: INTER. NORMALIZED RATIO 1.8
[2018-03-06 05:18] LABS: BASOPHIL (%) 0.2 % (0-1); EOSINOPHIL (%) 1.7 % (0-5); EOSINOPHIL COUNT 0.1 K/uL (0-0.3); HEMATOCRIT 20.9 % (38.0-50.0); IMMATURE GRANULOCYTE (%) 0.2 % (0.0-0.7); LYMPHOCYTE (%) 5.3 % (15-42); LYMPHOCYTE COUNT 0.3 K/uL (1.0-2.8); MCH 27.8 PG (29.0-34.0); MCHC 32.5 G/DL (30.0-36.0); MCV 85.3 FL (86-99); MONOCYTE (%) 8.2 % (3-12); MONOCYTE COUNT 0.5 K/uL (0-0.8); NEUTROPHIL (%) 84.4 % (45-76); NEUTROPHIL COUNT 4.9 K/uL (1.8-6.4); PTT 34.4 SEC (25-37); RBC DIS.WIDTH-SD 43.6 % (39-53); WHITE BLOOD COUNT 5.8 K/uL (4.1-10.2)
[2018-03-06 05:48] LABS: HEMOGLOBIN 6.8 G/DL (12.5-16.6); PLATELET COUNT 172 K/uL (156-360); RED BLOOD COUNT 2.45 M/uL (4.00-5.50)
[2018-03-06 06:04] LABS: CHLORIDE 97 MEQ/L (99-109); CREATININE 3.1 MG/DL (0.6-1.3); GFR ESTIMATE (CALCULATED) 21 mL/min/ (58.99-99999); GLUCOSE 165 mg/dL (70-99); MAGNESIUM 2.1 mg/dl (1.3-2.7); PHOSPHORUS 4.2 mg/dL (2.5-4.9); POTASSIUM 3.8 MEQ/L (3.7-5.4); SODIUM 135 MEQ/L (136-147); UREA NITROGEN (BUN) 84 mg/dL (9-23)
== END 2018-03-06 20:08 | DRG 683 ==
LOC: EME 11:40 → ENRESERV 17:27 → EDOF 17:27 → 4WEST 17:27 → ENRESERVTM 19:40 → ENRESERV 19:40 → ENRESERVDT 19:40 → 4WEST 20:16
PROVIDERS: Emergency Medicine; Specialist; Surgery
PROC: 5A09457 Assistance with Respiratory Ventilation, 24-96 Consecutive Hours, Continuous Positive Airway Pressure (ICD-10-PCS; principal; 2018-03-05)
PROC: 30233N1 Transfusion of Nonautologous Red Blood Cells into Peripheral Vein, Percutaneous Approach (ICD-10-PCS; 2018-03-06)
PROC: 30233L1 Transfusion of Nonautologous Fresh Plasma into Peripheral Vein, Percutaneous Approach (ICD-10-PCS; 2018-03-06)
DX: N17.9 Acute kidney failure, unspecified (principal); R18.8 Other ascites; J96.10 Chronic respiratory failure, unspecified whether with hypoxia or hypercapnia; Z99.11 Dependence on respirator [ventilator] status; Z93.0 Tracheostomy status; I95.9 Hypotension, unspecified; E11.22 Type 2 diabetes mellitus with diabetic chronic kidney disease; N18.4 Chronic kidney disease, stage 4 (severe); J44.9 Chronic obstructive pulmonary disease, unspecified; K72.90 Hepatic failure, unspecified without coma; K74.60 Unspecified cirrhosis of liver; D64.9 Anemia, unspecified; E03.9 Hypothyroidism, unspecified; K21.9 Gastro-esophageal reflux disease without esophagitis; F10.10 Alcohol abuse, uncomplicated; G89.29 Other chronic pain; Z66 Do not resuscitate; Z79.4 Long term (current) use of insulin; N40.0 Benign prostatic hyperplasia without lower urinary tract symptoms
CPT/HCPCS: 71045; 80048; 80053; 82948; 83605; 83735; 84100; 85014; 85018; 85025; 85027; 85610; 85730; 86850; 86900; 86901; 86920; 87040; 87081; 87641; 93005; 94002; 94003; 94640; 94640 76; 94760; 99202; 99281; 99285; C1753; J1940; J2997; J3430; J7030; J7050; J7070; P9016; P9017; P9047

== ENCOUNTER 2018-03-31 13:03 | Inpatient (IN) | payer OTHER ==
[~2018-03-31] VITALS: Ht 177.8 cm; Wt 81.2 kg
[2018-03-31] VITALS (15 sets, daily range): BP systolic 75–95; BP diastolic 48–62
[~2018-03-31 13:03] MED LIST changes: +ATROPINE 1100 DROP/5 BOTH EYES; +CALCIUM ACETAT667 MG PO; +ZYRTEC5 MG PO
[2018-03-31 14:20] LABS: HEMATOCRIT 18.6 % (38.0-50.0); MCH 28.4 PG (29.0-34.0); MCHC 32.8 G/DL (30.0-36.0); MCV 86.5 FL (86-99); RBC DIS.WIDTH-CV 14.1 % (11.8-14.6); RBC DIS.WIDTH-SD 44.3 % (39-53); RED BLOOD COUNT 2.15 M/uL (4.00-5.50)
[2018-03-31 14:21] LABS: BASOPHIL (%) 0.3 % (0-1); EOSINOPHIL (%) 2.7 % (0-5); EOSINOPHIL COUNT 0.1 K/uL (0-0.3); IMMATURE GRANULOCYTE (%) 0.3 % (0.0-0.7); LYMPHOCYTE (%) 7.1 % (15-42); LYMPHOCYTE COUNT 0.2 K/uL (1.0-2.8); MONOCYTE (%) 6.4 % (3-12); MONOCYTE COUNT 0.2 K/uL (0-0.8); NEUTROPHIL (%) 83.2 % (45-76); NEUTROPHIL COUNT 2.5 K/uL (1.8-6.4)
[2018-03-31 14:23] LABS: INTER. NORMALIZED RATIO 1.5
[2018-03-31 14:25] LABS: PTT 34.6 SEC (25-37)
[2018-03-31 14:26] LABS: CHLORIDE 103 mEq/L (99-109); POTASSIUM 4.6 mEq/L (3.7-5.4); SODIUM 143 mEq/L (136-147)
[2018-03-31 14:27] LABS: MAGNESIUM 1.6 mg/dL (1.3-2.7)
[2018-03-31 14:28] LABS: GLUCOSE 130 mg/dL (70-99); HEMOGLOBIN 6.1 G/DL (12.5-16.6); TOTAL PROTEIN 7.3 g/dL (6.4-8.3)
[2018-03-31 14:30] LABS: TOTAL BILIRUBIN 0.5 mg/dL (0.0-1.0)
[2018-03-31 14:32] LABS: ALKALINE PHOSPHATASE 75 IU/L (3-129); CREATININE 6.3 mg/dL (0.6-1.3); GFR ESTIMATE (CALCULATED) 9 mL/min/ (58.99-99999)
[2018-03-31 14:34] LABS: AST (GOT) 18 IU/L (2-34)
[2018-03-31 14:35] LABS: ALT (GPT) 8 IU/L (3-49)
[2018-03-31 14:38] LABS: TROP-I INTERPRETATION NEGATIVE; TROPONIN-I 0.06 ng/mL (0.0-0.30)
[2018-03-31 14:50] LABS: UREA NITROGEN (BUN) 108 mg/dL (9-23)
[2018-03-31 15:03] LABS: PLAT.SUFFICIENCY DECREASED
[2018-03-31 15:10] LABS: PLATELET COUNT 104 K/uL (156-360)
[2018-03-31 17:19] LABS: TYPE OF FLUID PARACENTESIS
[2018-03-31 18:17] LABS: APPEARANCE CLOUDY; BODY FLUID EOSINOPHILS 0 % (0-25); BODY FLUID RBC'S 4000 /MM^3 (0-100); BODY FLUID WBC'S 193 /MM^3 (0-500); MONONUCLEAR WBC'S 84 %; POLYNUCLEAR WBC'S 16 % (0-25)
[2018-03-31 18:41] LABS: BODY FLUID GLUCOSE 111 MG/DL; BODY FLUID LDH 81 IU/L; BODY FLUID PROTEIN < 3.0 G/DL
[2018-04-01] VITALS (19 sets, daily range): BP systolic 71–125; BP diastolic 47–80
[2018-04-01 08:27] LABS: BASOPHIL (%) 0.3 % (0-1); EOSINOPHIL COUNT 0.1 K/uL (0-0.3); HEMATOCRIT 23.9 % (38.0-50.0); HEMOGLOBIN 7.8 G/DL (12.5-16.6); IMMATURE GRANULOCYTE (%) 0.6 % (0.0-0.7); LYMPHOCYTE (%) 10.2 % (15-42); LYMPHOCYTE COUNT 0.4 K/uL (1.0-2.8); MCH 28.4 PG (29.0-34.0); MCHC 32.6 G/DL (30.0-36.0); MCV 86.9 FL (86-99); MONOCYTE (%) 7.9 % (3-12); MONOCYTE COUNT 0.3 K/uL (0-0.8); NEUTROPHIL COUNT 2.7 K/uL (1.8-6.4); PLATELET COUNT 99 K/uL (156-360); RBC DIS.WIDTH-CV 14.1 % (11.8-14.6); RBC DIS.WIDTH-SD 43.6 % (39-53); WHITE BLOOD COUNT 3.4 K/uL (4.1-10.2)
[2018-04-01 08:59] LABS: RED BLOOD COUNT 2.75 M/uL (4.00-5.50)
[2018-04-01 09:49] LABS: CHLORIDE 104 MEQ/L (99-109); CREATININE 6.3 MG/DL (0.6-1.3); GFR ESTIMATE (CALCULATED) 9 mL/min/ (58.99-99999); GLUCOSE 147 mg/dL (70-99); POTASSIUM 4.5 MEQ/L (3.7-5.4); SODIUM 142 MEQ/L (136-147); UREA NITROGEN (BUN) 103 mg/dL (9-23)
== END 2018-04-01 19:00 | disposition designated cancer center or children's hospital (05) | DRG 683 ==
LOC: EME 13:03 → 4WEST 17:09 → EDOF 17:09 → ENRESERV 17:11 → 4WEST 18:12
PROVIDERS: Emergency Medicine; Internal Medicine Critical Care Medicine
PROC: 30233N1 Transfusion of Nonautologous Red Blood Cells into Peripheral Vein, Percutaneous Approach (ICD-10-PCS; principal; 2018-03-31)
PROC: 5A1945Z Respiratory Ventilation, 24-96 Consecutive Hours (ICD-10-PCS; 2018-03-31)
PROC: 0W9G3ZZ Drainage of Peritoneal Cavity, Percutaneous Approach (ICD-10-PCS; 2018-04-01)
DX: N17.9 Acute kidney failure, unspecified (principal); N18.5 Chronic kidney disease, stage 5; J96.10 Chronic respiratory failure, unspecified whether with hypoxia or hypercapnia; Z99.11 Dependence on respirator [ventilator] status; J43.9 Emphysema, unspecified; R18.8 Other ascites; D61.818 Other pancytopenia; E11.22 Type 2 diabetes mellitus with diabetic chronic kidney disease; K74.60 Unspecified cirrhosis of liver; Z51.5 Encounter for palliative care; Z66 Do not resuscitate; E03.9 Hypothyroidism, unspecified; E78.5 Hyperlipidemia, unspecified; K21.9 Gastro-esophageal reflux disease without esophagitis; Z87.891 Personal history of nicotine dependence; K72.90 Hepatic failure, unspecified without coma; Z79.4 Long term (current) use of insulin; N40.0 Benign prostatic hyperplasia without lower urinary tract symptoms
CPT/HCPCS: 49083; 49406; 71045; 80048; 80053; 81003; 82945; 82948; 83615 91; 83735; 83880; 84157; 84484; 85025; 85027; 85610; 85730; 86850; 86900; 86901; 86920; 87070; 87075; 87077; 87081; 87186; 87205; 87641; 88108; 88305; 89051; 93005; 94002; 94003; 94640; 94799; 99281; 99285; C1729; J1644; J3010; P9016

== ENCOUNTER 2018-04-05 09:20 | Inpatient (IN) | payer OTHER ==
[~2018-04-05] VITALS: Ht 167.6 cm; Wt 78.9 kg
[2018-04-05 09:51] LABS: APPEARANCE CLOUDY ((CLEAR)); BILIRUBIN NEGATIVE; BLOOD LARGE; COLOR YELLOW ((YELLOW)); GLUCOSE (STRIP) NEGATIVE; KETONES NEGATIVE; LEUKOCYTES LARGE; NITRITE POSITIVE; PROTEIN (STRIP) 100; SPECIFIC GRAVITY 1.011 (1.000-1.030); UROBILINOGEN 0.2 MG/DL (0.2-1.0)
[2018-04-05 10:04] LABS: BASOPHIL (%) 0.2 % (0-1); EOSINOPHIL (%) 1.6 % (0-5); EOSINOPHIL COUNT 0.1 K/uL (0-0.3); HEMATOCRIT 25.4 % (38.0-50.0); HEMOGLOBIN 8.5 G/DL (12.5-16.6); IMMATURE GRANULOCYTE (%) 0.4 % (0.0-0.7); LYMPHOCYTE (%) 5.7 % (15-42); LYMPHOCYTE COUNT 0.3 K/uL (1.0-2.8); MCHC 33.5 G/DL (30.0-36.0); MCV 86.7 FL (86-99); MONOCYTE (%) 5.7 % (3-12); MONOCYTE COUNT 0.3 K/uL (0-0.8); NEUTROPHIL (%) 86.4 % (45-76); NEUTROPHIL COUNT 4.4 K/uL (1.8-6.4); PLATELET COUNT 109 K/uL (156-360); RBC DIS.WIDTH-CV 14.7 % (11.8-14.6); RBC DIS.WIDTH-SD 46.3 % (39-53); RED BLOOD COUNT 2.93 M/uL (4.00-5.50); WHITE BLOOD COUNT 5.1 K/uL (4.1-10.2)
[2018-04-05 10:14] LABS: CHLORIDE 105 mEq/L (99-109); POTASSIUM 4.9 mEq/L (3.7-5.4); SODIUM 141 mEq/L (136-147)
[2018-04-05 10:14] LABS: CARBON DIOXIDE (BICARBONATE) 32.2 MEQ/L (20-31)
[2018-04-05 10:16] LABS: GLUCOSE 127 mg/dL (70-99); TOTAL PROTEIN 7.5 g/dL (6.4-8.3)
[2018-04-05 10:18] LABS: TOTAL BILIRUBIN 0.6 mg/dL (0.0-1.0)
[2018-04-05 10:19] LABS: ALKALINE PHOSPHATASE 76 IU/L (3-129)
[2018-04-05 10:19] LABS: BACTERIA 1+ /HPF; EPITHELIAL CELLS NONE SEEN /HPF; MUCUS NONE SEEN /LPF; RED BLOOD CELLS TNTC /HPF (0-5); UCUL ADDED? YES; WHITE BLOOD CELLS TNTC /HPF (0-5)
[2018-04-05 10:20] LABS: CREATININE 6.6 mg/dL (0.6-1.3); GFR ESTIMATE (CALCULATED) 9 mL/min/ (58.99-99999)
[2018-04-05 10:21] LABS: AST (GOT) 23 IU/L (2-34)
[2018-04-05 10:22] LABS: ALT (GPT) 10 IU/L (3-49)
[2018-04-05 10:27] LABS: UREA NITROGEN (BUN) 102 mg/dL (9-23)
[2018-04-05] MEDS ORDERED: ATROPINE 1100 DROP/5 BOTH EYES (13:14)
[2018-04-05] MEDS ORDERED: LEVOTHYROXINE50 MCG PO (13:16)
[2018-04-05] MEDS ORDERED: LACTULOSE10 GM/151 PO (13:16)
[2018-04-05] MEDS ORDERED: DOLOPHINE HCL5 MG PO (13:24)
[2018-04-05] MEDS ORDERED: CALCIUM600 M1 PO (13:25)
[2018-04-05] MEDS ORDERED: CALCIUM ACETAT667 MG PO (13:26)
[2018-04-05] MEDS ORDERED: FEOSOL325 MG PO (13:27)
[2018-04-05] MEDS ORDERED: MAGOX 400400 MG PO (13:28)
[2018-04-05] MEDS ORDERED: PROAMATINE2.5 MG PO (13:29)
[2018-04-05] MEDS ORDERED: PROTONIX40 MG PO (13:30)
[2018-04-05] MEDS ORDERED: FLOMAX0.4 MG PO (13:31)
[2018-04-05] MEDS ORDERED: THERA1 EAC2 PO (13:32)
[2018-04-05] MEDS ORDERED: XIFAXAN550 MG PO (13:32)
[2018-04-05] MEDS ORDERED: ROXICODONE5 MG PO (13:33)
[2018-04-05] MEDS ORDERED: NOVOLOG PE100 UNITS/ SC (13:38)
[2018-04-05] MEDS ORDERED: ARTIFICIAL TEAR1510 BOTH EYES (13:40)
[2018-04-05] MEDS ORDERED: LEVEMIR100 UNIT/2 SC (13:43)
[2018-04-05] MEDS ORDERED: LASIX20 MG PO (13:44)
[2018-04-05] MEDS ORDERED: ZOFRAN4 MG PO (13:50)
[2018-04-05] MEDS ORDERED: REMERON15 M2 PO (13:51)
[2018-04-05 17:00] VITALS: BP 87/57
[2018-04-05 20:00] VITALS: BP 88/46
[2018-04-05 22:00] VITALS: BP 99/71
[2018-04-06] VITALS (9 sets, daily range): BP systolic 69–98; BP diastolic 42–61
[2018-04-06 05:07] LABS: HEMATOCRIT 24.3 % (38.0-50.0); HEMOGLOBIN 7.6 G/DL (12.5-16.6); MCH 27.5 PG (29.0-34.0); MCHC 31.3 G/DL (30.0-36.0); PLATELET COUNT 110 K/uL (156-360); RBC DIS.WIDTH-CV 14.7 % (11.8-14.6); RBC DIS.WIDTH-SD 47.1 % (39-53); RED BLOOD COUNT 2.76 M/uL (4.00-5.50); WHITE BLOOD COUNT 4.6 K/uL (4.1-10.2)
[2018-04-06 05:46] LABS: CHLORIDE 106 MEQ/L (99-109); CREATININE 6.2 MG/DL (0.6-1.3); GFR ESTIMATE (CALCULATED) 10 mL/min/ (58.99-99999); GLUCOSE 120 mg/dL (70-99); POTASSIUM 4.8 MEQ/L (3.7-5.4); SODIUM 141 MEQ/L (136-147); UREA NITROGEN (BUN) 91 mg/dL (9-23)
[2018-04-06] MEDS ORDERED: ACETAMINOPHEN325 M1 PO (16:18)
[2018-04-06] MEDS ORDERED: PULMICORT0.5 MG/21 IH (16:22)
[2018-04-06] MEDS ORDERED: DUONEB 2.5-0.5 M3 ML AEROSOL ×2 (16:22→16:23)
[2018-04-07] VITALS (7 sets, daily range): BP systolic 76–96; BP diastolic 47–60
[2018-04-08] VITALS (9 sets, daily range): BP systolic 83–100; BP diastolic 52–66
[2018-04-08 05:22] LABS: HEMATOCRIT 23.1 % (38.0-50.0); HEMOGLOBIN 7.3 G/DL (12.5-16.6); MCH 28.6 PG (29.0-34.0); MCHC 31.6 G/DL (30.0-36.0); MCV 90.6 FL (86-99); PLATELET COUNT 86 K/uL (156-360); RBC DIS.WIDTH-SD 48.8 % (39-53); RED BLOOD COUNT 2.55 M/uL (4.00-5.50); WHITE BLOOD COUNT 3.3 K/uL (4.1-10.2)
[2018-04-08 06:18] LABS: CHLORIDE 107 MEQ/L (99-109); CREATININE 6.2 MG/DL (0.6-1.3); GFR ESTIMATE (CALCULATED) 10 mL/min/ (58.99-99999); GLUCOSE 144 mg/dL (70-99); MAGNESIUM 1.6 mg/dl (1.3-2.7); POTASSIUM 4.8 MEQ/L (3.7-5.4); SODIUM 142 MEQ/L (136-147); UREA NITROGEN (BUN) 94 mg/dL (9-23)
[2018-04-09] VITALS: BP 88/55
[2018-04-09 04:00] VITALS: BP 86/49
[2018-04-09 05:57] LABS: ALBUMIN 1.5 G/DL (3.2-4.8); ALKALINE PHOSPHATASE 57 IU/L (3-129); ALT (GPT) 9 IU/L (3-49); AST (GOT) 19 IU/L (2-34); CHLORIDE 106 MEQ/L (99-109); CREATININE 6.1 MG/DL (0.6-1.3); GFR ESTIMATE (CALCULATED) 10 mL/min/ (58.99-99999); GLUCOSE 114 mg/dL (70-99); POTASSIUM 4.9 MEQ/L (3.7-5.4); SODIUM 140 MEQ/L (136-147); TOTAL BILIRUBIN 0.5 MG/DL (0.0-1.0); TOTAL PROTEIN 6.4 G/DL (6.4-8.3); UREA NITROGEN (BUN) 90 mg/dL (9-23)
[2018-04-09 06:13] LABS: PREALBUMIN 4.7 mg/dL (10-40)
[2018-04-09 08:30] VITALS: BP 76/48
[2018-04-09 09:20] LABS: BASOPHIL (%) 0.6 % (0-1); EOSINOPHIL (%) 2.1 % (0-5); EOSINOPHIL COUNT 0.1 K/uL (0-0.3); HEMATOCRIT 25.7 % (38.0-50.0); HEMOGLOBIN 8.4 G/DL (12.5-16.6); IMMATURE GRANULOCYTE (%) 0.6 % (0.0-0.7); LYMPHOCYTE (%) 7.8 % (15-42); LYMPHOCYTE COUNT 0.4 K/uL (1.0-2.8); MCH 28.9 PG (29.0-34.0); MCHC 32.7 G/DL (30.0-36.0); MCV 88.3 FL (86-99); MONOCYTE COUNT 0.3 K/uL (0-0.8); NEUTROPHIL (%) 81.9 % (45-76); NEUTROPHIL COUNT 3.9 K/uL (1.8-6.4); PLATELET COUNT 101 K/uL (156-360); RBC DIS.WIDTH-CV 14.8 % (11.8-14.6); RBC DIS.WIDTH-SD 47.5 % (39-53); RED BLOOD COUNT 2.91 M/uL (4.00-5.50); WHITE BLOOD COUNT 4.7 K/uL (4.1-10.2)
[2018-04-09] MEDS ORDERED: AMIKACIN (500 MG/2 M IV (12:27)
[2018-04-09] MEDS ORDERED: ZOSYN 3.3753.375 GM IV (12:28)
[2018-04-09] MEDS ORDERED: Zeasorb Antifungal T TP (12:29)
[2018-04-09 12:30] VITALS: BP 73/48
== END 2018-04-09 15:56 | disposition designated cancer center or children's hospital (05) | DRG 870 ==
LOC: EME 09:20 → EDOF 12:23 → 4WEST 12:23 → EDOF 12:23 → ENRESERV 13:52 → 4WEST 16:44
PROVIDERS: Emergency Medicine; Hospitalist; Internal Medicine; Student in an Organized Health Care Education/Training Program
PROC: 5A1955Z Respiratory Ventilation, Greater than 96 Consecutive Hours (ICD-10-PCS; principal; 2018-04-05)
DX: A41.59 Other Gram-negative sepsis (principal); J96.11 Chronic respiratory failure with hypoxia; Z99.11 Dependence on respirator [ventilator] status; J44.9 Chronic obstructive pulmonary disease, unspecified; J95.851 Ventilator associated pneumonia; D61.818 Other pancytopenia; L89.42 Pressure ulcer of contiguous site of back, buttock and hip, stage 2; K74.60 Unspecified cirrhosis of liver; Z93.0 Tracheostomy status; L89.029 Pressure ulcer of left elbow, unspecified stage; L89.892 Pressure ulcer of other site, stage 2; R18.8 Other ascites; E11.22 Type 2 diabetes mellitus with diabetic chronic kidney disease; E11.622 Type 2 diabetes mellitus with other skin ulcer; N18.5 Chronic kidney disease, stage 5; I95.89 Other hypotension; L03.311 Cellulitis of abdominal wall; Z51.5 Encounter for palliative care; Z66 Do not resuscitate; E03.9 Hypothyroidism, unspecified; I35.0 Nonrheumatic aortic (valve) stenosis; K72.90 Hepatic failure, unspecified without coma; B19.20 Unspecified viral hepatitis C without hepatic coma; Z16.24 Resistance to multiple antibiotics; E78.5 Hyperlipidemia, unspecified; K21.9 Gastro-esophageal reflux disease without esophagitis; N39.0 Urinary tract infection, site not specified; Z79.4 Long term (current) use of insulin; N40.0 Benign prostatic hyperplasia without lower urinary tract symptoms
CPT/HCPCS: 71045; 80048; 80053; 80150 90; 81003; 82140; 82803; 82948; 83605; 83735; 84134; 85025; 85027; 86850; 86900; 86901; 87040; 87070; 87077; 87081; 87086 GA; 87186; 87205; 87641; 87801; 93005; 94002; 94003; 94640; 94760; 94799; 99281; 99285; J0278; J0692; J0696; J1644; J1956; J2543; J7050

== ENCOUNTER 2018-05-05 11:42 | Emergency (ER) | payer OTHER ==
[~2018-05-05] VITALS: Ht 162.6 cm; Wt 82.3 kg
[~2018-05-05 11:42] MED LIST changes: +AMIKACIN (500 MG/2 M IV; +CALCIUM + VITA1 EACH PO; +LACTULOSE10 GM/151 PO; +LASIX20 MG PO; +LEVOTHYROXINE50 MCG PO; +MAGOX 400400 MG PO; +PROAMATINE10 MG PO; +REMERON15 M2 PO; +THERA1 EAC2 PO; +ZOFRAN4 MG PO; +ZOSYN 3.3753.375 GM IV; +Zeasorb Antifungal T TP
[2018-05-05 12:11] LABS: COMMENTS - BLOOD GASES C+NA; SITE RR
[2018-05-05 12:12] LABS: DEVICE VENT; FI02 40 %; MECHANICAL RATE 18 resp/min; MODE A/C; PCO2 39 mm Hg (35-45); PEEP 5 CM/H20; PO2 129 mm Hg (80-100); TIDAL VOLUME 500 ML; TOTAL RESP RATE 20 resp/min; pH 7.42 (7.35-7.45)
[2018-05-05 12:13] LABS: BASE EXCESS 0.8 mEq/L (-3 to +3); BICARBONATE 25.3 mEq/L (22-26); CARBOXY HGB 1.8 % (0-5); METHEMOGLOBIN 0.9 % (0-1.5)
[2018-05-05 13:05] LABS: ALBUMIN 1.8 g/dL (3.2-4.8); CHLORIDE 103 mEq/L (99-109); SODIUM 136 mEq/L (136-147)
[2018-05-05 13:06] LABS: MAGNESIUM 1.6 mg/dL (1.3-2.7); POTASSIUM 6.6 mEq/L (3.7-5.4)
[2018-05-05 13:07] LABS: BASOPHIL (%) 0.1 % (0-1); EOSINOPHIL (%) 0.1 % (0-5); GLUCOSE 155 mg/dL (70-99); HEMATOCRIT 19.8 % (38.0-50.0); IMMATURE GRANULOCYTE (%) 0.5 % (0.0-0.7); LYMPHOCYTE (%) 2.2 % (15-42); LYMPHOCYTE COUNT 0.2 K/uL (1.0-2.8); MCH 27.9 PG (29.0-34.0); MCHC 31.8 G/DL (30.0-36.0); MCV 87.6 FL (86-99); MONOCYTE COUNT 0.5 K/uL (0-0.8); NEUTROPHIL (%) 92.1 % (45-76); PLATELET COUNT 98 K/uL (156-360); RBC DIS.WIDTH-SD 54.8 % (39-53); WHITE BLOOD COUNT 9.7 K/uL (4.1-10.2)
[2018-05-05 13:08] LABS: TOTAL PROTEIN 7.3 g/dL (6.4-8.3)
[2018-05-05 13:09] LABS: TOTAL BILIRUBIN 0.7 mg/dL (0.0-1.0)
[2018-05-05 13:11] LABS: ALKALINE PHOSPHATASE 68 IU/L (3-129); GFR ESTIMATE (CALCULATED) 7 mL/min/ (58.99-99999)
[2018-05-05 13:13] LABS: AST (GOT) 21 IU/L (2-34)
[2018-05-05 13:14] LABS: ALT (GPT) 11 IU/L (3-49); UREA NITROGEN (BUN) 119 mg/dL (9-23)
[2018-05-05 13:16] LABS: TROP-I INTERPRETATION POSITIVE
[2018-05-05 13:18] LABS: APPEARANCE CLOUDY ((CLEAR)); BILIRUBIN NEGATIVE; BLOOD LARGE; COLOR AMBER ((YELLOW)); GLUCOSE (STRIP) 50; KETONES NEGATIVE; LEUKOCYTES NEGATIVE; NITRITE NEGATIVE; PROTEIN (STRIP) 100; SPECIFIC GRAVITY 1.013 (1.000-1.030); UROBILINOGEN 0.2 MG/DL (0.2-1.0)
[2018-05-05 13:20] LABS: TROPONIN-I 2.83 ng/mL (0.0-0.30)
[2018-05-05 13:53] LABS: EPITHELIAL CELLS RARE /HPF; MUCUS NONE SEEN /LPF; WHITE BLOOD CELLS NONE SEEN /HPF (0-5)
[2018-05-05 13:54] LABS: AMORPHOUS URATES CRYSTALS 3+; BACTERIA 1+ /HPF; UCUL ADDED? NO
[2018-05-05 14:22] LABS: HEMOGLOBIN 6.3 G/DL (12.5-16.6); RED BLOOD COUNT 2.26 M/uL (4.00-5.50)
[2018-05-05] MEDS ORDERED: SODIUM POL15 GM/60 M PO (15:03)
[2018-05-05] MEDS ORDERED: GLUCAGEN1 MG/1 ML IM (15:06)
[2018-05-05 18:33] VITALS: BP 75/55
== END 2018-05-05 18:36 ==
LOC: EME 11:42 → EDOF 14:28 → EME 14:28 → CANRESERV 14:33 → ENRESERV 14:33 → CANRESERV 14:42 → ENRESERV 14:42 → EDOF 18:35
PROVIDERS: Emergency Medicine
DX: I95.9 Hypotension, unspecified (principal); J96.10 Chronic respiratory failure, unspecified whether with hypoxia or hypercapnia; I21.4 Non-ST elevation (NSTEMI) myocardial infarction; E87.5 Hyperkalemia; E11.22 Type 2 diabetes mellitus with diabetic chronic kidney disease; N18.9 Chronic kidney disease, unspecified; Z66 Do not resuscitate; Z51.5 Encounter for palliative care; Z99.11 Dependence on respirator [ventilator] status; Z93.0 Tracheostomy status; J43.9 Emphysema, unspecified; Z79.4 Long term (current) use of insulin; K74.60 Unspecified cirrhosis of liver; D64.9 Anemia, unspecified; G89.29 Other chronic pain; K21.9 Gastro-esophageal reflux disease without esophagitis; N40.0 Benign prostatic hyperplasia without lower urinary tract symptoms
CPT/HCPCS: 36600; 70450; 71045; 80053; 81003; 83605; 83735; 84484; 85025; 86850; 86900; 86901; 86920; 87040; 87070; 87077; 87147; 87186; 87205; 87801; 93005; 94002; 99281; 99285; J7040; J7050